=== PATIENT | male | born 1965 | race Caucasian/White ===

== ENCOUNTER 2016-05-09 18:20 | Emergency (ER) | payer OTHER ==
[~2016-05-09] VITALS: Ht 170.2 cm; Wt 171.1 kg
[2016-05-09 18:33] VITALS: TEMP 37.3; Ht 170.2 cm; Wt 171.1 kg
[2016-05-09] MEDS ORDERED: ASCA500 PO (20:13)
[2016-05-09] MEDS ORDERED: DULA0.5I INJ (20:13)
--- NOTE | 2016-05-09 22:07 | DIAGNOSTIC IMAGING REPORT ---
ULTRASOUND LEFT LOWER EXTREMITY VENOUS CLINICAL HISTORY: Left leg pain and swelling. Infection.. COMPARISON STUDY: No priors. TECHNIQUE: Real-time, grayscale, and color Doppler sonography of the deep veins of the left lower extremity was performed from the inguinal crease to the calf. Compression and augmentation were utilized. FINDINGS: There is no sonographic evidence of deep venous thrombosis identified in the left lower extremity. The common femoral, superficial femoral, and popliteal veins are patent and normally compressible. The greater saphenous vein and the profunda femoris vein at the junction with the common femoral vein are clear. The visualized calf veins are patent. There is mild soft tissue edema noted at the site of abnormality in the left anterior olivera. No organized fluid collection is seen. IMPRESSION: There is no sonographic evidence of deep venous thrombosis identified in the left lower extremity. Electronically signed by: Daniele Waller M.D. 05/09/2016 10:05 PM Dictated Date/Time: 05/09/2016 10:05 PM
[2016-05-09] MEDS ORDERED: CEPH500C2 PO (22:12)
[2016-05-09] MEDS ORDERED: CEPHALEXIN MONOHYDRATE 250 MG CAP PO ONE (22:15)
[2016-05-09] MEDS ORDERED: CEPHALEXIN 500MG HOME PACK 1 EA BTL PO ONE ×2 (22:15)
[2016-05-09 22:24] VITALS: BP 156/95; PULSE 93; O2SAT 95
--- NOTE | 2016-05-09 22:46 | EMERGENCY ROOM VISIT NOTE ---
History Report prepared by Maritza: Celestine Woods Under the Supervision of: Dr. Champ Colmenares D.O. First contact with patient: 19:48 Chief Complaint: WOUND INFECTION Stated Complaint: LEFT LEG INECTION Nursing Triage Summary: Pt states redness, itching to LLE that started Sat/Sun. Pt states, "It is sore in the middle of that area, like I would have bumped it on something. I don't remember bumping it, but that doesn't mean I didn't. I got a new pair of jeans and wore them before I washed them. It started with itching. The redness is getting worse and everywhere it's red, it itches." History of Present Illness The patient is a 50 year old male who presents to the Emergency Room with complaints of a worsening wound infection in his left lower leg beginning about 3 days ago. He notes it started as a rash and itchiness, and described it as if he hit his leg, but he denies hitting his leg. The patient denies having any fever, cough, rhinorrhea, chest pain, shortness of breath, nausea, vomiting, diarrhea, or urinary symptoms. He reports having a history of folliculitis on his arms, and a blood clot in his left leg 6 years ago. He notes taking 325 mg Aspirin once per day. He notes that the redness is itchy and warm to touch. He notes that it is also slightly painful. Source of History: patient Onset: about 3 days ago Position: leg (left) Quality: other (wound infection) Timing: worsening Associated Symptoms: + rash, No SOB, No chest pain, No diarrhea, No fevers, No nausea, No urinary symptoms, No vomiting Review of Systems See HPI for pertinent positives & negatives. A total of 10 systems reviewed and were otherwise negative. Past Medical & Surgical Medical Problems: (1) History of blood clots (2) History of folliculitis Family History No pertinent family history stated. Social History Smoking Status: Never Smoker Marital Status: Housing Status: lives with significant other Occupation Status: employed Current/Historical Medications Scheduled Ascorbic Acid (Vitamin C), 1,000 MG PO DAILY Aspirin (Aspirin Ec), 325 MG PO DAILY Cephalexin Monohydrate (Keflex), 500 MG PO QID Cholecalciferol (Vitamin D), 5,000 INTER.UNIT PO DAILY Dulaglutide (Trulicity), 0.5 ML INJ WK Hydrochlorothiazide (Hydrochlorothiazide), 25 MG PO DAILY Metformin HCl (Metformin HCl), 1,000 MG PO QAM Metoprolol Tartrate (Lopressor) (Lopressor), 25 MG PO DAILY Omeprazole (Prilosec), 20 MG PO DAILY Allergies Coded Allergies: No Known Allergies (Unverified , 05/09/16) Physical Exam Vital Signs Date Time Temp Pulse Resp B/P Pulse Ox O2 Delivery O2 Flow Rate FiO2 05/09/16 22:24 93 20 156/95 95 Room Air 05/09/16 20:54 89 20 170/100 95 Room Air 05/09/16 18:33 37.3 91 16 172/85 95 Room Air Physical Exam GENERAL: Sitting up in bed, alert, well appearing, well nourished, no distress, non-toxic EYE EXAM: normal conjunctiva OROPHARYNX: no exudate, no erythema, lips, buccal mucosa, and tongue normal and mucous membranes are moist NECK: supple, no nuchal rigidity, no adenopathy, non-tender LUNGS: Clear to auscultation. Normal chest wall mechanics HEART: no murmurs, S1 normal and S2 normal ABDOMEN: abdomen soft, non-tender, normo-active bowel sounds, no masses, no rebound or guarding. BACK: Back is symmetrical on inspection and there is no deformity, no midline tenderness, no CVA tenderness. SKIN: no rashes and no bruising UPPER EXTREMITIES: upper extremities are grossly normal. LOWER EXTREMITIES: No pitting edema. Calves are equal bilaterally. Left lower extremity: erythema and scratch vazquez on anterior left tibia; skin is warm; no induration; no petechiae. NEURO EXAM: Normal sensorium, cranial nerves II-XII grossly intact, normal speech, no gross weakness of arms, no gross weakness of legs. No drift. Finger to nose intact. Gross sensation intact. Medical Decision & Procedures ER Provider Diagnostic Interpretation: Radiology results have been interpreted by the radiologist and reviewed by me. ULTRASOUND LEFT LOWER EXTREMITY VENOUS FINDINGS: There is no sonographic evidence of deep venous thrombosis identified in the left lower extremity. The common femoral, superficial femoral, and popliteal veins are patent and normally compressible. The greater saphenous vein and the profunda femoris vein at the junction with the common femoral vein are clear. The visualized calf veins are patent. There is mild soft tissue edema noted at the site of abnormality in the left anterior olivera. No organized fluid collection is seen. IMPRESSION: There is no sonographic evidence of deep venous thrombosis identified in the left lower extremity. Electronically signed by: Daniele Waller M.D. 05/09/2016 10:05 PM Dictated Date/Time: 05/09/2016 10:05 PM Medications Administered Medications (Trade) Dose Ordered Sig/Thad Route Start Time Stop Time Status Last Admin Dose Admin Cephalexin Monohydrate (Keflex Cap) 500 mg NOW ONCE PO 05/09/16 22:15 05/09/16 22:16 DC 05/09/16 22:24 500 MG Cephalexin Monohydrate (Keflex 500MG Home Pack) 1 homepack NOW ONCE PO 05/09/16 22:15 05/09/16 22:16 DC 05/09/16 22:24 1 HOMEPACK Cephalexin Monohydrate (Keflex 500MG Home Pack) 1 homepack NOW ONCE PO 05/09/16 22:15 05/09/16 22:16 DC 05/09/16 22:24 1 HOMEPACK ED Course ED COURSE: Vital signs were reviewed and showed hypertensive. The patients medical record was reviewed The above diagnostic studies were performed and reviewed. ED treatments and interventions as stated above. 1950: The patient was evaluated in room C12B. A complete history and physical examination was performed. 2215: Ordered Cephalexin Monohydrate 1 homepack PO, Cephalexin Monohydrate 1 homepack PO, and Cephalexin Monohydrate 500 mg PO. 2220: Upon reevaluation, the patient is doing well.I discussed my findings with the patient and he understands and agrees with the treatment plan. Based on the patients age, coexisting illnesses, exam and lab findings the decision to treat as an outpatient was made. The patient remained stable while under my care. The patient appeared well at the time of discharge. Medical Decision Differential diagnosis includes etiologies such as cellulitis, abscess, MRSA infection, DVT, necrotizing fasciitis, dermatitis, drug eruption, as well as others were entertained. Patient is a 50-year-old male who presents the ER for redness and itching along his left olivera. He notes that it started Sunday night and Sunday. On my exam and slightly warm and erythematous. He does have scratch vazquez. It's unclear whether this is truly a cellulitis versus a topical reaction. As he is a diabetic I recommended Keflex and follow-up in 48 hours. Duplex was negative for any clots. I also recommended topical cortisone cream which she has at home and Zyrtec or Claritin for the itching. He can take Benadryl as needed at night is instructed to follow up with PCP. Discussed with Pt concerning signs and symptoms to watch out for. Pt was instructed to follow up with their PCP and discussed with the patient their option to return to the ED at anytime for persistent or worsening symptoms. The appropriate anticipatory guidance and out- patient management, including indications for return to the emergency department , were explained at length to the patient and understood. Impression Primary Impression: Cellulitis Scribe Attestation The scribe's documentation has been prepared under my direction and personally reviewed by me in its entirety. I confirm that the note above accurately reflects all work, treatment, procedures, and medical decision making performed by me. Departure Information Dispostion Home / Self-Care Prescriptions Cephalexin Monohydrate (KEFLEX) 500 Mg Cap 500 MG PO QID for 8 Days, #32 CAP Prov: Champ Colmenares, DO 05/09/16 Referrals Vandana Lockwood PA-C (PCP) Patient Instructions Cellulitis - [facility], My [facility] Additional Instructions Please follow up with your primary care doctor with in the next 24 hours. Any worsening of your symptoms, please return to the ED immediately. This includes fevers grade and 100.4, worsening of the redness, worsening pain, or any other concerning signs or symptoms from your standpoint. Please take Ceretec or Claritin as needed for the itching. He can take Benadryl prior to going to bed. Please take antibiotic as prescribed. Problem Qualifiers Primary Impression: Cellulitis Site of cellulitis: extremity Site of cellulitis of extremity: lower extremity Laterality: left Qualified Codes: L03.116 - Cellulitis of left lower limb
[2016-10-04] MEDS ORDERED: CHOL100010 PO (20:13)
[2016-10-04] MEDS ORDERED: ASPI325T39 PO (20:13)
[2016-10-04] MEDS ORDERED: HYDR25TA5 PO (20:13)
[2016-10-04] MEDS ORDERED: METO25TA56 PO (20:13)
[2016-10-04] MEDS ORDERED: GLC500 PO (20:13)
[2016-10-04] MEDS ORDERED: PRLSR20 PO (20:13)
== END 2016-05-09 22:39 | disposition home or self-care (01) ==
LOC: C.EDB 18:22 → C.EDC 22:39
DX: L03.116 Cellulitis of left lower limb (principal); Z79.82 Long term (current) use of aspirin

== ENCOUNTER 2016-10-04 20:59 | Emergency (ER) | payer OTHER ==
[~2016-10-04] VITALS: Ht 170.2 cm; Wt 171.4 kg
[~2016-10-04 20:59] MED LIST: ASCA500 PO; ASPI325T39 PO; CHOL100010 PO; DULA0.5I INJ; GLC500 PO; HYDR25TA5 PO; METO25TA56 PO; PRLSR20 PO
[2016-10-04 21:04] VITALS: TEMP 36.6; Ht 170.2 cm; Wt 171.4 kg
[2016-10-04] MEDS ORDERED: DiphenhydrAMINE HCL 50 MG/ML VIAL IV STA (21:38)
[2016-10-04] MEDS ORDERED: RANITIDINE HCL 50 MG/100 ML D5W IV STA (21:38)
[2016-10-04] MEDS ORDERED: TURM1CAP4 PO (21:44)
[2016-10-04] MEDS ORDERED: PRED10TA PO (21:44)
[2016-10-04] MEDS ORDERED: DEXAMETHASONE SOD INJ 10 MG/ML VIAL IV ONE (21:45)
[2016-10-04 22:21] LABS: BASO % 0.3 %; BASO ABS # 0.03 K/uL (0-0.2); COMPLETE YES; EOS % 2.1 %; HEMATOCRIT 40.3 % (42-52); IG% 0.4 %; LYMPH % 31.8 %; LYMPH ABS # 3.22 K/uL (1.2-3.4); MEAN CELL VOLUME 89.8 fL (80-100); MEAN CORPUSCULAR HEMOGLOBIN 31.4 pg (25-34); MEAN PLATELET VOLUME 11.4 fL (7.4-10.4); NEUT % 58.4 %; PLATELET COUNT 229 K/uL (130-400); RED BLOOD COUNT 4.49 M/uL (4.7-6.1); WHITE BLOOD COUNT 10.14 K/uL (4.8-10.8)
[2016-10-04 22:47] LABS: ALKALINE PHOSPHATASE 135 U/L (45-117); ALT/SGPT 49 U/L (12-78); AST/SGOT 46 U/L (15-37); BLOOD UREA NITROGEN 15 mg/dl (7-18); BUN/CREATININE RATIO 13.6 (10-20); CALCIUM 8.3 mg/dl (8.5-10.1); CARBON DIOXIDE 28 mmol/L (21-32); CHLORIDE 101 mmol/L (98-107); GLUCOSE 272 mg/dl (70-99); POTASSIUM 3.2 mmol/L (3.5-5.1); SODIUM 138 mmol/L (136-145)
[2016-10-04] MEDS ORDERED: POTASSIUM CHLORIDE 10 MEQ TABCR PO STA (23:04)
[2016-10-04] MEDS ORDERED: EPINEPHRINE ADULT AUTO-INJECT 0.3 MG SYR IM ONE (23:45)
[2016-10-05 00:05] VITALS: BP 131/74; PULSE 98; O2SAT 95
--- NOTE | 2016-10-05 04:53 | EMERGENCY ROOM VISIT NOTE ---
History First contact with patient: 21:21 Chief Complaint: ALLERGIC REACTION Stated Complaint: ALLERGIC REACTION TO SOMETHING Nursing Triage Summary: Started Turmeric a month ago, changed fabric softener last week. Yesterday had hives and itching. Took Claritin which helped somewhat. Took the Tumeric this morning, lips swelled and hives came back, took Claritin again. PCP advised to go to ED. History of Present Illness The patient is a 50 year old male who presents to the Emergency Room with complaints of hives and allergic reaction for the past day after the used a new detergent. Patient states though for the past month has been taken tumeric for health wellness and has noticed that he's been sweating more and has had yellow color to his stool. Patient states he cannot afford his diabetes medicine injections and is only using his metformin. He does not monitor his blood sugars. Patient denies chest pain, dyspnea, abdominal pain, vomiting, throat tightness, feeling of impending doom, airway compromise. He is tolerate by mouth fluids and food. He called the family care doctor and was called in prednisone. Patient took a Claritin with some relief of symptoms. Review of Systems See HPI for pertinent positives & negatives. A total of 10 systems reviewed and were otherwise negative. Past Medical/Surgical History Medical Problems: (1) History of blood clots (2) History of folliculitis Diabetes, hypertension, vitamin D deficiency Social History Smoking Status: Never Smoker Drug Use: none Marital Status: Housing Status: lives with significant other Occupation Status: employed Current/Historical Medications Scheduled Aspirin (Aspirin Ec), 325 MG PO DAILY Cholecalciferol (Vitamin D), 5,000 INTER.UNIT PO DAILY Hydrochlorothiazide (Hydrochlorothiazide), 25 MG PO DAILY Metformin HCl (Metformin HCl), 1,000 MG PO QAM Metoprolol Tartrate (Lopressor) (Lopressor), 25 MG PO DAILY Omeprazole (Prilosec), 20 MG PO DAILY Prednisone (Prednisone), 40 MG PO DAILY Turmeric (Curcuma Longa) (Turmeric), 1 TAB PO DAILY Physical Exam Vital Signs Date Time Temp Pulse Resp B/P (MAP) Pulse Ox O2 Delivery O2 Flow Rate FiO2 10/05/16 00:05 98 20 131/74 95 10/04/16 23:09 88 18 132/83 95 Room Air 10/04/16 21:04 36.6 105 18 183/94 95 Room Air Pain Rating (0-10): 0 Physical Exam VITALS: Vitals are noted on the nurse's note and reviewed by myself. Vital signs hypertensive GENERAL: Pleasant male, in no acute distress, nondiaphoretic, well-developed well-nourished. SKIN: Diffuse erythematous blanchable dermatitis most consistent with hives The rest of the skin was without rashes, erythema, edema, or bruising. There is no tenting of the skin. Capillary reflex less than 2 seconds. HEAD: Normocephalic atraumatic. No facial swelling EARS: External auditory canals clear, tympanic membranes pearly tafoya without erythema or effusion bilaterally. EYES: Pupils equal round and reactive to light and accommodation. Conjunctivae without injection, sclerae without icterus. Extraocular movements intact. NOSE: Patent, turbinates without inflammation or discharge. MOUTH: Mucous membranes moist. Pharynx without erythema or exudate. Uvula midline. Airway patent. Tongue does not deviate. No airway compromise NECK: Supple without nuchal rigidity. No lymphadenopathy. No thyromegaly. Cervical spine is nontender. No JVD. HEART: Regular rate and rhythm LUNGS: Clear to auscultation bilaterally without wheezes, rales or rhonchi. No dullness to percussion. No retractions or accessory muscle use. ABDOMEN: Positive bowel sounds x 4. Normal tympanic percussion. Soft, nontender, without masses or organomegaly. Kelsey sign negative. No guarding or rebound tenderness. MUSCULOSKELETAL: No muscle atrophy, erythema, or edema noted. NEURO: Patient was alert and oriented to person place and time. Normal sensation to light and sharp touch. No focal neurological deficits. Medical Decision & Procedures Laboratory Results 10/04/16 22:05 Red Blood Count 4.49, Mean Corpuscular Volume 89.8, Mean Corpuscular Hemoglobin 31.4, Mean Corpuscular Hemoglobin Concent 35.0, Mean Platelet Volume 11.4, Neutrophils (%) (Auto) 58.4, Lymphocytes (%) (Auto) 31.8, Monocytes (%) (Auto) 7.0, Eosinophils (%) (Auto) 2.1, Basophils (%) (Auto) 0.3, Neutrophils # (Auto) 5.93, Lymphocytes # (Auto) 3.22, Monocytes # (Auto) 0.71, Eosinophils # (Auto) 0.21, Basophils # (Auto) 0.03 10/04/16 22:05 Test 10/04/16 22:05 White Blood Count 10.14 K/uL (4.8-10.8) Red Blood Count 4.49 M/uL (4.7-6.1) Hemoglobin 14.1 g/dL (14.0-18.0) Hematocrit 40.3 % (42-52) Mean Corpuscular Volume 89.8 fL (80-100) Mean Corpuscular Hemoglobin 31.4 pg (25-34) Mean Corpuscular Hemoglobin Concent 35.0 g/dl (32-36) Platelet Count 229 K/uL (130-400) Mean Platelet Volume 11.4 fL (7.4-10.4) Neutrophils (%) (Auto) 58.4 % Lymphocytes (%) (Auto) 31.8 % Monocytes (%) (Auto) 7.0 % Eosinophils (%) (Auto) 2.1 % Basophils (%) (Auto) 0.3 % Neutrophils # (Auto) 5.93 K/uL (1.4-6.5) Lymphocytes # (Auto) 3.22 K/uL (1.2-3.4) Monocytes # (Auto) 0.71 K/uL (0.11-0.59) Eosinophils # (Auto) 0.21 K/uL (0-0.5) Basophils # (Auto) 0.03 K/uL (0-0.2) RDW Standard Deviation 42.4 fL (36.4-46.3) RDW Coefficient of Variation 13.0 % (11.5-14.5) Immature Granulocyte % (Auto) 0.4 % Immature Granulocyte # (Auto) 0.04 K/uL (0.00-0.02) Anion Gap 9.0 mmol/L (3-11) Est Creatinine Clear Calc Drug Dose 121.6 ml/min Estimated GFR () 89.6 Estimated GFR (Non- 77.3 BUN/Creatinine Ratio 13.6 (10-20) Calcium Level 8.3 mg/dl (8.5-10.1) Total Bilirubin 0.1 mg/dl (0.2-1) Direct Bilirubin < 0.1 mg/dl (0-0.2) Aspartate Amino Transf (AST/SGOT) 46 U/L (15-37) Alanine Aminotransferase (ALT/SGPT) 49 U/L (12-78) Alkaline Phosphatase 135 U/L (45-117) Total Protein 6.7 gm/dl (6.4-8.2) Albumin 3.1 gm/dl (3.4-5.0) Chemistry Specimen Hemolysis Medications Administered Medications (Trade) Dose Ordered Sig/Thad Route Start Time Stop Time Status Last Admin Dose Admin Diphenhydramine HCl (Benadryl Inj) 50 mg NOW STAT IV 10/04/16 21:38 10/04/16 21:45 DC 10/04/16 22:11 50 MG Ranitidine HCl (zANTac IV) 50 mg NOW STAT IV 10/04/16 21:38 10/04/16 21:45 DC 10/04/16 22:14 50 MG Dexamethasone Sodium Phosphate (Decadron Inj) 10 mg NOW ONCE IV 10/04/16 21:45 10/04/16 21:46 DC 10/04/16 22:09 10 MG Potassium Chloride (Klor-Con M10) 30 meq NOW STAT PO 10/04/16 23:04 10/04/16 23:05 DC 10/04/16 23:12 30 MEQ Epinephrine (Epipen) 0.3 mg NOW ONCE IM 10/04/16 23:45 10/04/16 23:46 DC 10/05/16 00:04 0.3 MG ED Course Prior records/ancillary studies reviewed. Triage Nursing notes reviewed. The patient's history was concerning for possible allergic reaction. Differential diagnosis: Etiologies such as allergic reaction, anaphylaxis, urticaria, Spears-Pranav syndrome, toxic epidermal necrolysis, erythema multiforme, cellulitis, as well as others were entertained. Physical examination: As above. ER treatment provided: Continuous cardiac monitoring Benadryl 50 mg IV Zantac 50 mg IV Decadron 10 mg IV On reassessment the patient felt better. Diagnostic interpretation by me: Mild hyperglycemia without DKA. Low potassium this is replaced orally It appears the patient had an allergic reaction and side effect to the supplement. The above treatment did well to reverse the symptoms. After prolonged monitoring and frequent reassessments the patient did very well and symptoms resolved. The patient was counseled on the spectrum of this disease process and told to avoid potential triggers. I gave my usual and customary discussion regarding this issue. He was advised not to take the supplement anymore and not to use laundry detergent anymore. He was advised to see his family care DrKhurram for his blood pressure and hyperglycemia. He was advised to return to the ER immediately for chest pain, difficulty breathing, worsening signs or symptoms or as needed. Patient did not have acute abdomen on exam. He is well-appearing. By the evaluation outlined above emergent etiologies such as recurring anaphylaxis, anaphylatic shock, airway compromise, Spears-Pranav syndrome, toxic epidermal necrolysis, erythema multiforme, infectious etiologies, as well as others were deemed relatively unlikely. The pt informed about the findings as listed above. All questions were answered and pleased with the treatment. Return instructions were outlined and the patient was discharged in stable condition. Outpatient prescription management: EpiPen prednisone Referral: The patient was referred back to primary care physician for follow-up in 2-3 days for a recheck of the current condition. Medical Decision As above Medication Reconcilliation Current Medication List: was personally reviewed by me Blood Pressure Screening Patient's blood pressure: Elevated blood pressure Blood pressure disposition: Elevated BP felt to be situational Impression Primary Impression: Allergic reaction Departure Information Dispostion Home / Self-Care Condition GOOD Referrals Vandana Lockwood PA-C (PCP) Forms HOME CARE DOCUMENTATION FORM, IMPORTANT VISIT INFORMATION Patient Instructions My [facility], ED Allergic Reaction General Other Additional Instructions DO NOT drive, drink alcohol, operate machinery, or perform dangerous activities today. You were given medications in the ER that can affect your ability to safely function or operate a vehicle. Monitor your blood sugar. It was high today. Do not take Tumeric in the future. Do not use the same fabric softener in the future. Epi-Pen: Use one injection as instructed for severe allergic reactions associated with shortness of breath, difficulty breathing, or throat or tongue swelling. If you use this injection call 911 or proceed immediately to the nearest Emergency Room. Take your prednisone as directed from the family care doctor today. Diphenhydramine(Benadryl) 25mg: use 25 to 50 mg every six hours for swelling, itching, or hives. This medication is sedating and will cause drowsiness. Avoid alcohol, operating machinery or dangerous equipment, working on ladders or roofs, DRIVING, or situations where being under the influence may be dangerous. Zantac 75: Take two pills twice a day along with Benadryl as needed for swelling , itching, or hives. Most people know this for its affect on the stomach, but it also acts similar to, but less potent than Benadryl for allergic reactions. Both the Benadryl and the Zantac are available [id number]. Continue current medications. Return to the emergency department for worsening of your rash, swelling of your face, lips, tongue, or throat, difficulty breathing, vomiting, or as needed. Follow-up with your primary care physician in 2 to 3 days for a recheck of your current condition. Problem Qualifiers Primary Impression: Allergic reaction Encounter type: initial encounter Qualified Codes: T78.40XA - Allergy, unspecified, initial encounter
== END 2016-10-05 00:07 | disposition home or self-care (01) ==
LOC: C.EDB 21:01 → C.EDC 10-05 00:07
DX: T78.40XA Allergy, unspecified, initial encounter (principal); X58.XXXA Exposure to other specified factors, initial encounter; E11.9 Type 2 diabetes mellitus without complications; I10 Essential (primary) hypertension; E55.9 Vitamin D deficiency, unspecified; Z86.2 Personal history of diseases of the blood and blood-forming organs and certain disorders involving the immune mechanism; Z79.82 Long term (current) use of aspirin; Z79.84 Long term (current) use of oral hypoglycemic drugs; Z79.899 Other long term (current) drug therapy

== ENCOUNTER 2020-01-17 16:04 | Inpatient (IN) ==
[2020-01-17 18:12] LABS: Hematocrit (blood only) 44.5 % (42-52); Hemoglobin 15.1 g/dL (14.0-18.0); Mean Corpuscular Hemoglobin 29.9 pg (25-34); Mean Corpuscular Hgb Conc 33.9 g/dL (32-36); Mean Corpuscular Volume 88.1 fL (80-100); Mean Platelet Volume 10.8 fL (7.4-10.4); Platelet Count 228 K/uL (130-400); RDW Standard Deviation 45.1 fL (36.4-46.3); Red Blood Count 5.05 M/uL (4.7-6.1); White Blood Count 11.45 K/uL (4.8-10.8)
--- NOTE | 2020-01-17 18:21 | Emergency Department Note ---
History of Present Illness General Chief complaint: Shortness of Breath/Dyspnea Source: patient and RN notes reviewed Mode of arrival: ambulatory Limitations: no limitations History of Present Illness Provider complaint: SOB This patient is a 54-year-old male who presents to the emergency department with complaints of 9 days of shortness of breath, cough chills/sweats. Patient states he has been nauseated and did vomit x1 just a clear frothy emesis at the beginning of the illness. Currently the patient has been having a "gurgling and upset stomach" anytime he drinks fluids. He states he cannot drink enough water and has a [place]. He is diabetic but has not been checking his blood sugars. 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 He was using his CPAP during the day to help with the shortness of breath however over the last 24 to 36 hours this has not been beneficial. Patient's 20-year-old daughter was tested for Covid several days ago due to sinus issues. He states his does not work but his daughter does go to school. He was placed on antibiotics over telehealth by his primary care provider yesterday by his insistence. He states his PCP wanted him to obtain a Covid test but he declined. Home Medications Medication Instructions Recorded Confirmed Type aspirin 325 mg PO PM 02/07/18 01/17/20 History hydrochlorothiazide 25 mg PO QAM 02/07/18 01/17/20 History metformin 1,000 mg PO BID 02/07/18 01/17/20 History metoprolol tartrate 25 mg PO BID 02/07/18 01/17/20 History albuterol sulfate 2 inh INHALATION QID PRN 05/12/19 01/17/20 History ascorbic acid (vitamin C) 1 g PO BID 05/12/19 01/17/20 History glimepiride 4 mg PO BID 05/12/19 01/17/20 History losartan 100 mg PO QAM 05/12/19 01/17/20 History omeprazole 20 mg PO QAM 05/12/19 01/17/20 History acetaminophen [Tylenol Extra 1,000 mg PO Q6H PRN 01/17/20 01/17/20 History Strength] dulaglutide [Trulicity] 0.5 mg SUBCUT WK 01/17/20 01/17/20 History empagliflozin [Jardiance] 10 mg PO QAM 01/17/20 01/17/20 History zinc 50 mg PO QAM 01/17/20 01/17/20 History Allergies Allergy/AdvReac Type Severity Reaction Status Date / Time No Known Allergies Allergy Unverified 01/17/20 19:26 Past Med/Surg History Medical History (Updated 01/17/20 @ 22:26 by Annabella Garcia MD) Diabetes DVT (deep venous thrombosis) Dyslipidemia Hypertension Morbid obesity Social History Smoking Status: Never smoker Preferred Language: Niuean marital status: current occupational status: employed Feels Safe at Home: Yes Review of Systems See HPI for pertinent positives & negatives. and A total of 10 systems reviewed and were otherwise negative Physical Exam Vital Signs Vital Signs - 24 hr 01/17/20 19:30 01/17/20 20:00 01/17/20 20:30 Pulse Rate 96 H 98 H 99 H Pulse Rate from SpO2 Sensor 95 H 98 H 115 H Respiratory Rate 20 19 24 Blood Pressure 135/87 152/75 H 165/85 H Blood Pressure Mean 100 106 111 Pulse Oximetry 96 98 90 Oxygen Delivery Method Nasal Cannula Nasal Cannula Nasal Cannula Oxygen Flow Rate 2 2 2 Pulse Oximetry Post Tiitration 01/17/20 20:47 01/17/20 21:00 01/17/20 21:30 Pulse Rate 98 H 101 H Pulse Rate from SpO2 Sensor 96 H 101 H Respiratory Rate 21 21 Blood Pressure 175/81 H 160/87 H Blood Pressure Mean 96 105 Pulse Oximetry 95 94 Oxygen Delivery Method Nasal Cannula Nasal Cannula Nasal Cannula Oxygen Flow Rate 4 4 4 Pulse Oximetry Post Tiitration 95 01/17/20 22:00 Pulse Rate 98 H Pulse Rate from SpO2 Sensor 98 H Respiratory Rate 22 Blood Pressure 173/85 H Blood Pressure Mean 108 Pulse Oximetry 93 Oxygen Delivery Method Nasal Cannula Oxygen Flow Rate 4 Pulse Oximetry Post Tiitration Vital signs reviewed. Noted to be hypoxic on room air at triage General: Morbidly obese, somewhat ill-appearing 54-year-old male, in no significant distress. HEENT: No scleral icterus, PERRLA, neck supple. Atraumatic. Cardiovascular: Slightly tachycardic, no extra sounds. Pulmonary: Somewhat distant lung sounds but otherwise clear to auscultation bilaterally, normal work of breathing on nasal cannula oxygen. Abdomen: Soft, obese, nontender, nondistended, positive bowel sounds. Musculoskeletal: Atraumatic, minimal peripheral edema bilaterally. Neurologic: Patient awake alert and oriented x 3 Skin: Warm, dry, no rash Course Administered Medications Discontinued Medications Dexamethasone (Dexamethasone Sod Inj 10 Mg/Ml Vial) 6 mg IV NOW ONE Stop: 01/17/20 19:55 Last Admin: 01/17/20 20:15 Dose: 6 mg Documented by: [id number] Potassium Chloride (K Patrice / Wtr) 10 meq in 100 mls @ 100 mls/hr IV Q1H LIBAN Stop: 01/17/20 21:59 Last Admin: 01/17/20 21:45 Dose: 100 mls/hr Documented by: [id number] Infusion: 01/17/20 21:08 Dose: 0 mls/hr Documented by: [id number] Admin: 01/17/20 20:16 Dose: 100 mls/hr Documented by: [id number] Ioversol (Optiray 320 125ml) 120 ml IV ONCE ONE Stop: 01/17/20 19:13 Last Admin: 01/17/20 19:12 Dose: 120 ml Documented by: [id number] Critical Care Time Critical Care Time: Yes I have personally spent greater than 32 minutes of critical care time in the direct management of this patient. This includes bedside care, interpretation of diagnostic studies, and testing, discussion with consultants, patient, and family members, and other required patient management activities. This 32 minutes is in excess of all separately billable procedures. Medical Decision Making Differential Diagnosis COVID, reactive airway disease, pneumonia, pneumothorax, COPD, CHF, infections, cardiac ischemia, pulmonary embolism, musculoskeletal, gastrointestinal, as well as other pathologies. Medical Records Attestation: I reviewed the patient's medical records. Home Medications Current Medication List: was personally reviewed by me Laboratory Data Attestation: I reviewed the patient's lab results. Result diagrams: 01/17/20 17:47 01/17/20 17:47 Lab Results 01/17/20 01/17/20 01/17/20 Range/Units 17:47 17:47 17:47 WBC 11.45 H (4.8-10.8) K/uL RBC 5.05 (4.7-6.1) M/uL Hgb 15.1 (14.0-18.0) g/dL Hct 44.5 (42-52) % MCV 88.1 (80-100) fL MCH 29.9 (25-34) pg MCHC 33.9 (32-36) g/dL RDW Std Deviation 45.1 (36.4-46.3) fL RDW Coeff of Real 14.0 (11.5-14.5) % Plt Count 228 (130-400) K/uL MPV 10.8 H (7.4-10.4) fL Sodium 138 (136-145) mmol/L Potassium 2.9 L (3.5-5.1) mmol/L Chloride 100 (98-107) mmol/L Carbon Dioxide 26 (21-32) mmol/L Anion Gap 12.0 H (3-11) BUN 16 (7-18) mg/dl Creatinine 0.98 (0.6-1.4) mg/dl Est Cr Clr Drug Dosing Not Reportable Est GFR ( Amer) 100.2 Est GFR (Non-Af Amer) 86.4 BUN/Creatinine Ratio 16.4 (10-20) Glucose 156 H (70-99) mg/dl Lactate (0.4-2.0) mmol/L Calcium 8.2 L (8.5-10.1) mg/dl Total Bilirubin 0.6 (0.2-1) mg/dl Direct Bilirubin 0.2 (0-0.2) mg/dl AST 54 H (15-37) U/L ALT 45 (12-78) U/L Alkaline Phosphatase 71 (45-117) U/L Troponin I 0.039 (0-0.045) ng/ml NT-Pro-B Natriuret Pep 76 (0-900) pg/ml Total Protein 7.5 (6.4-8.2) gm/dl Albumin 2.6 L (3.4-5.0) gm/dl COVID-19 Eval Order COVID-19 PCR (Negative) Influenza Type A (PCR) (Neg) Influenza Type B (PCR) (Neg) RSV (RT-PCR) (Neg) SARS-CoV-2, RNA, NAAT NEGATIVE (NEGATIVE) 01/17/20 01/17/20 01/17/20 Range/Units 17:47 20:20 20:20 WBC (4.8-10.8) K/uL RBC (4.7-6.1) M/uL Hgb (14.0-18.0) g/dL Hct (42-52) % MCV (80-100) fL MCH (25-34) pg MCHC (32-36) g/dL RDW Std Deviation (36.4-46.3) fL RDW Coeff of Real (11.5-14.5) % Plt Count (130-400) K/uL MPV (7.4-10.4) fL Sodium (136-145) mmol/L Potassium (3.5-5.1) mmol/L Chloride (98-107) mmol/L Carbon Dioxide (21-32) mmol/L Anion Gap (3-11) BUN (7-18) mg/dl Creatinine (0.6-1.4) mg/dl Est Cr Clr Drug Dosing Est GFR ( Amer) Est GFR (Non-Af Amer) BUN/Creatinine Ratio (10-20) Glucose (70-99) mg/dl Lactate 1.7 (0.4-2.0) mmol/L Calcium (8.5-10.1) mg/dl Total Bilirubin (0.2-1) mg/dl Direct Bilirubin (0-0.2) mg/dl AST (15-37) U/L ALT (12-78) U/L Alkaline Phosphatase (45-117) U/L Troponin I (0-0.045) ng/ml NT-Pro-B Natriuret Pep (0-900) pg/ml Total Protein (6.4-8.2) gm/dl Albumin (3.4-5.0) gm/dl COVID-19 Eval Order CovFluRsv at [facility] COVID-19 PCR POSITIVE A* (Negative) Influenza Type A (PCR) Negative (Neg) Influenza Type B (PCR) Negative (Neg) RSV (RT-PCR) Negative (Neg) SARS-CoV-2, RNA, NAAT (NEGATIVE) Imaging Data Radiologist's Impression: XR chest 1V portable CLINICAL HISTORY: SOB COMPARISON STUDY: 05/12/2019 FINDINGS: The heart is enlarged. There is superior mediastinal widening, nonspecific finding which could be secondary to fat deposition given the patient's body habitus. There are bilateral airspace opacities left greater than right. Diagnostic considerations include asymmetric pulmonary edema versus a multifocal pneumonia. Correlation with Covid 19 testing is recommended.[ IMPRESSION: 1. Bilateral pulmonary airspace opacities left greater than right. Diagnostic considerations include multifocal pneumonia versus asymmetric pulmonary edema. Correlation with Covid 19 testing is recommended. ACT 112: Negative or not required by law. Electronically signed by: Benjamín Terrell M.D. 01/17/2020 6:21 PM Dictated: 01/17/201818Transcribed: 01/17/201818 CT ANGIOGRAM OF THE CHEST CLINICAL HISTORY: Chest pain and shortness of breath NEGATIVE COVID 19 TEST. COMPARISON STUDY: February 07, 2018 TECHNIQUE: Following the IV administration of 120 mL of Optiray-320, CT angiogram of the thorax was performed from the thoracic inlet to the lung bases utilizing the pulmonary embolus protocol. Images are reviewed in the axial, sagittal, and coronal planes. IV contrast was administered without complication. MIP imaging was performed. A dose lowering technique was utilized adhering to the principles of ALARA. CT DOSE: 919.66 mGy.cm FINDINGS: There is hepatic steatosis Borderline enlarged paratracheal lymph nodes, are likely reactive. There was no evidence of thoracic aortic dilatation. No pulmonary artery filling defects are visualized. Evaluation of lower lobe pulmonary artery branches is limited due to respiratory motion artifact. No pleural effusions are visualized. There are multifocal groundglass pulmonary opacities. Despite the reported negative Covid 19 test, the findings are viewed as suspicious for Covid 19 pneumonia. Retesting is recommended IMPRESSION: 1. Motion degraded study 2. Multifocal groundglass pulmonary opacities with a somewhat peripheral distribution. Although nonspecific, the findings are viewed as suspicious for Covid 19 pneumonia. Repeat Covid 19 testing is recommended. 3. No evidence of acute pulmonary embolism although evaluation of lower lobe pu lmonary artery branches is limited due to respiratory motion artifact. 4. Hepatic steatosis ACT 112: Negative or not required by law. Electronically signed by: Benjamín Terrell M.D. 01/17/2020 7:27 PM Dictated: 01/17/201921Transcribed: 01/17/201921 ECG Data Attestation: I personally reviewed and interpreted this ECG as follows: Blood Pressure Blood Pressure Findings: Elevated blood pressure Blood Pressure Disposition: further management by hospitalist KAELA Narrative This patient was evaluated and appeared to be in no significant distress. Triage vital signs reveal a hypoxia however patient responded well to nasal cannula supplementation at 4 L. Patient was placed in isolation. Patient's body habitus may be causing some restrictive hypoxia as well. Chest x-ray reveals patchy bilateral pulmonary infiltrates. IV access was obtained and laboratory work was drawn. An order for cardiac monitoring was placed and the patient was noted to be in a sinus rhythm at 96 bpm. Patient's initial Covid swab was negative. Chest CT was performed given the patient's history of DVT and now hypoxia with patchy bilateral infiltrates. The study is negative for PE however is concerning for Covid pneumonitis. A cephiad COVID was performed and is positive. Patient did receive K rider 10 M EQ x2 IV for potassium of 2.9. Pt was given IV Decadron 6 mg. Blood cultures and lactate are pending. Patient's case was discussed with Dr. Kim who will evaluate the patient for admission and further management. Impression & Plan Pneumonia due to 2019 novel coronavirus, Diabetes, Morbid obesity, Hypoxia, Acute hypokalemia Discharge Plan Visit Data Chief Complaint: Shortness of Breath/Dyspnea ED Provider: Annabella Garcia Discharge Problem: Pneumonia due to 2019 novel coronavirus, Diabetes, Morbid obesity, Hypoxia, Acute hypokalemia Forms Stand Alone Forms: [facility] Prescriptions Prescriptions: No Action ascorbic acid (vitamin C) 1,000 mg Tablet 1 g PO BID RF: 0 omeprazole 20 mg Capsule,Delayed Release(Dr/Ec) 20 mg PO QAM RF: 0 albuterol sulfate 90 mcg/actuation Hfa Aerosol Inhaler 2 inh INHALATION QID PRN (Reason: Shortness Of Breath Or Wheezing) RF: 0 losartan 100 mg tablet 100 mg PO QAM RF: 0 glimepiride 4 mg tablet 4 mg PO BID RF: 0 aspirin 325 mg Tablet,Delayed Release (Dr/Ec) 325 mg PO PM RF: 0 metformin 1,000 mg Tablet 1,000 mg PO BID RF: 0 hydrochlorothiazide 25 mg Tablet 25 mg PO QAM RF: 0 metoprolol tartrate 25 mg Tablet 25 mg PO BID RF: 0 acetaminophen [Tylenol Extra Strength] 500 mg Tablet 1,000 mg PO Q6H PRN (Reason: Pain) RF: 0 zinc 50 mg Tablet 50 mg PO QAM RF: 0 Jardiance 10 mg tablet 10 mg PO QAM RF: 0 Trulicity 1.5 mg/0.5 mL pen injector 0.5 mg SUBCUT WK RF: 0 Discharge Problem: Diabetes Qualifiers: Diabetes mellitus type: type 2 Diabetes mellitus manager intermediate insulin use: without manager intermediate use Diabetes mellitus complication status: without complication Qualified Code(s): E11.9 - Type 2 diabetes mellitus without complications
[2020-01-17 18:29] LABS: Alanine Aminotransferase 45 U/L (12-78); Albumin Level 2.6 gm/dl (3.4-5.0); Aspartate Aminotransferase 54 U/L (15-37); BUN Creatinine Ratio 16.4 (10-20); Bilirubin Direct 0.2 mg/dl (0-0.2); Blood Urea Nitrogen 16 mg/dl (7-18); Calcium 8.2 mg/dl (8.5-10.1); Carbon Dioxide 26 mmol/L (21-32); Chloride 100 mmol/L (98-107); Est GFR (African American) 100.2; Est GFR (Non-African American) 86.4; Glucose 156 mg/dl (70-99); Potassium 2.9 mmol/L (3.5-5.1); Sodium 138 mmol/L (136-145)
--- NOTE | 2020-01-17 18:32 | XRay Report ---
XR chest 1V portable CLINICAL HISTORY: SOB COMPARISON STUDY: 05/12/2019 FINDINGS: The heart is enlarged. There is superior mediastinal widening, nonspecific finding which co uld be secondary to fat deposition given the patient's body habitus. There are bilateral airspace opa cities left greater than right. Diagnostic considerations include asymmetric pulmonary edema versus a multifocal pneumonia. Correlation with Covid 19 testing is recommended.[ IMPRESSION: 1. Bilateral pulmonary airspace opacities left greater than right. Diagnostic considerations include multifocal pneumonia versus asymmetric pulmonary edema. Correlation with Covid 19 testing is recommen ded. ACT 112: Negative or not required by law. Electronically signed by: Benjamín Terrell M.D. 01/17/2020 6:21 PM
[2020-01-17 18:33] LABS: Alkaline Phosphatase 71 U/L (45-117); Bilirubin,Total 0.6 mg/dl (0.2-1); NT Pro B Type Natriuretic Pept 76 pg/ml (0-900); Total Protein 7.5 gm/dl (6.4-8.2); Troponin I 0.039 ng/ml (0-0.045)
[2020-01-17] MEDS ORDERED: OPTIRAY 320 125ml IV ONE (19:12)
--- NOTE | 2020-01-17 19:28 | CT Scan Report ---
CT ANGIOGRAM OF THE CHEST CLINICAL HISTORY: Chest pain and shortness of breath NEGATIVE COVID 19 TEST. COMPARISON STUDY: February 07, 2018 TECHNIQUE: Following the IV administration of 120 mL of Optiray-320, CT angiogram of the thorax was p erformed from the thoracic inlet to the lung bases utilizing the pulmonary embolus protocol. Images a re reviewed in the axial, sagittal, and coronal planes. IV contrast was administered without complica tion. MIP imaging was performed. A dose lowering technique was utilized adhering to the principles o f ALARA. CT DOSE: 919.66 mGy.cm FINDINGS: There is hepatic steatosis Borderline enlarged paratracheal lymph nodes, are likely reactive. There was no evidence of thoracic aortic dilatation. No pulmonary artery filling defects are visualized. Evaluation of lower lobe pulmonary artery branche s is limited due to respiratory motion artifact. No pleural effusions are visualized. There are multifocal groundglass pulmonary opacities. Despite the reported negative Covid 19 test, th e findings are viewed as suspicious for Covid 19 pneumonia. Retesting is recommended IMPRESSION: 1. Motion degraded study 2. Multifocal groundglass pulmonary opacities with a somewhat peripheral distribution. Although nonsp ecific, the findings are viewed as suspicious for Covid 19 pneumonia. Repeat Covid 19 testing is [place] mmended. 3. No evidence of acute pulmonary embolism although evaluation of lower lobe pulmonary artery branche s is limited due to respiratory motion artifact. 4. Hepatic steatosis ACT 112: Negative or not required by law. Electronically signed by: Benjamín Terrell M.D. 01/17/2020 7:27 PM
[2020-01-17] MEDS ORDERED: DEXAMETHASONE SOD INJ 10 MG/ML VIAL IV ONE (19:54)
[2020-01-17] MEDS: POTASSIUM CHLORIDE / WTR 10 MEQ/100 ML PLCT IV SCH ×2 (20:16→21:45)
[2020-01-17 21:38] LABS: Influenza A virus by PCR Negative (Neg); Influenza B virus by PCR Negative (Neg); RSV by PCR Negative (Neg)
[2020-01-17 22:00] LABS: SARS CoV2 RNA(COVID-19) InHosp POSITIVE (Negative)
--- NOTE | 2020-01-17 22:38 | History & Physical Report ---
Date of Service January 17, 2020 Assessment & Plan (1) Pneumonia due to 2019 novel coronavirus: Pneumonia due to COVID-19 virus with hypoxia- Admit to monitored bed Decadron 6 mg IV daily Convalescent plasma, consent obtained Remdesivir IV per protocol Azithromycin 500 mg IV daily Ventolin HFA 2 puffs 4 times daily, and every 2 hours as needed Nasal cannula titration to keep pulse ox around 93-94% Present on Admission?: Yes (2) Hypoxia: See above Present on Admission?: Yes (3) Diabetes: Glucose 156 upon admission, with decreased oral intake during illness. Hold Trulicity, Jardiance, glimepiride and metformin. Placed on Accu-Cheks before meals and at bedtime with NovoLog coverage per scale Check hemoglobin A1c Present on Admission?: Yes (4) Morbid obesity: Noted as risk factor Present on Admission?: Yes (5) Hypertension: Continue metoprolol tartrate 25 mg p.o. twice daily, losartan 100 mg p.o. every morning and aspirin 325 mg daily. Hold HCTZ due to hypokalemia. Given K riders in the ED. We will repeat laboratories in a.m. Present on Admission?: Yes (6) DVT (deep venous thrombosis): Place on Lovenox prophylaxis for COVID-19 Present on Admission?: Yes (7) GERD (gastroesophageal reflux disease): Omeprazole 20 mg daily to be changed to pantoprazole 40 mg daily Present on Admission?: Yes (8) Acute hypokalemia: Replace as noted and repeat levels Present on Admission?: Yes (9) Obstructive sleep apnea on CPAP: CPAP at bedtime as needed Present on Admission?: Yes (10) Dyslipidemia: Not on treatment at this time Present on Admission?: Yes History of Present Illness Chief Complaint: The patient presents to the emergency department with complaint of 6 days of intermittent fevers, chills, sweats, cough and shortness of breath Primary Care Provider: Brissa Ly PA-C The patient is a 54-year-old male with a past medical history including diabetes mellitus, morbid obesity, hypertension, dyslipidemia, DVT, GERD and asthma. In addition to the symptoms above, he is also had tremendous thirst, and an upset stomach. He does not regularly check his blood sugar so is unaware of what his sugars have been. He reports that he has begun to use his nighttime CPAP during the daytime as well to try to help with his breathing. He had a telehealth appointment by his PCP yesterday, and was prescribed antibiotics. He was advised to have a COVID-19 test by his PCP during the telehealth visit but declined. In the emergency department patient had the following significant laboratories: WBC 11.45, potassium 2.9, albumin 2.6, glucose 156, AST 54, D-dimer 850. Imaging studies included chest x-ray and CT of chest, both of which suggested viral pneumonia. He underwent an initial SARSCoV-2 RNA, NAAT test that was n egative. However it was agreed by Dr. Garcia and myself that the patient most likely had COVID-19, and the patient therefore underwent a COVID-19 PCR test which was positive. His lowest pulse ox recorded was 90% on room air, and improved to 93-94% on 4 L nasal cannula oxygen. Allergies Allergy/AdvReac Type Severity Reaction Status Date / Time No Known Allergies Allergy Unverified 01/17/20 19:26 Home Medications Medication Instructions Recorded Confirmed Type aspirin 325 mg PO PM 02/07/18 01/17/20 History hydrochlorothiazide 25 mg PO QAM 02/07/18 01/17/20 History metformin 1,000 mg PO BID 02/07/18 01/17/20 History metoprolol tartrate 25 mg PO BID 02/07/18 01/17/20 History albuterol sulfate 2 inh INHALATION QID PRN 05/12/19 01/17/20 History ascorbic acid (vitamin C) 1 g PO BID 05/12/19 01/17/20 History glimepiride 4 mg PO BID 05/12/19 01/17/20 History losartan 100 mg PO QAM 05/12/19 01/17/20 History omeprazole 20 mg PO QAM 05/12/19 01/17/20 History acetaminophen [Tylenol Extra 1,000 mg PO Q6H PRN 01/17/20 01/17/20 History Strength] dulaglutide [Trulicity] 0.5 mg SUBCUT WK 01/17/20 01/17/20 History empagliflozin [Jardiance] 10 mg PO QAM 01/17/20 01/17/20 History zinc 50 mg PO QAM 01/17/20 01/17/20 History Past Med/Surg History Medical History (Updated 01/18/20 @ 02:54 by Jean Carlos Daley MD) Diabetes DVT (deep venous thrombosis) Dyslipidemia GERD (gastroesophageal reflux disease) Hypertension Morbid obesity Obstructive sleep apnea on CPAP Social History Smoking Status: Never smoker Hx Alcohol Use: No Hx Substance Use: No Preferred Language: Chinese Director Funeral Required: No Beliefs That Will Affect Care: None marital status: Current Living Situation: Spouse and Family current occupational status: employed Other Information That Helps Us Care for You: No Feels Safe at Home: No Is there a partner from a previous relationship who is making you feel unsafe now?: No Any Concerns about Your Family Situation: No Would You Like to Speak to Someone About Your Situation: No Safety Concerns: Feels Safe At This Time Assistive Devices: CPAP Review of Systems Review of Systems: The patient denies chest pain, palpitations, lower extremity swelling, nausea, vomiting, diarrhea , constipation, abdominal pain, pelvic pain, blood in urine or stool, dysuria, urinary frequency or urgency, lightheadedness, dizziness, headache, memory loss, loss of consciousness, rash, abnormal bruising or bleeding, imbalance, focal weakness, numbness or tingling in arms or legs, generalized arthralgias or myalgias, back or neck pain, or night sweats. The review of systems is otherwise negative other than for that already noted a marybel, and at least 10 systems have been reviewed. Physical Exam Physical Exam: The patient is awake, alert and oriented 3, well developed and well nourished, normocephalic and atraumatic, lying in bed and in no acute distress. HEENT--PERRL, EOMI, mucous membranes and oropharynx dry. Neck--supple. No JVD. No bruits. Thyroid normal, trachea midline, no adenopathy. Heart--normal S1 and S2. No murmurs, rubs or gallops. Lungs--coarse breath sounds bilaterally. No respiratory distress, no accessory muscle use. Abdomen--normal bowel sounds and soft. Nontender. Nondistended. Morbidly obese Extremities--no cyanosis or clubbing. No edema. Dermatologic--normal skin turgor, normal color, no abnormal lymph nodes, no rash. Neurologic--cranial nerves II through XII grossly intact. Rheumatologic--normal range of motion. Psychiatric--normal affect. Results & Data Results & Data ([facility]) Vital Signs (Past 12 Hours) Vital Signs Pulse Resp BP Pulse Ox 01/17/20 22:00 98 H 22 173/85 H 93 01/17/20 21:30 101 H 21 160/87 H 94 01/17/20 21:00 98 H 21 175/81 H 95 01/17/20 20:30 99 H 24 165/85 H 90 01/17/20 20:00 98 H 19 152/75 H 98 01/17/20 19:30 96 H 20 135/87 96 Laboratory Results Laboratory Results WBC 11.45 K/uL (4.8-10.8) H 01/17/20 17:47 RBC 5.05 M/uL (4.7-6.1) 01/17/20 17:47 Hgb 15.1 g/dL (14.0-18.0) 01/17/20 17:47 Hct 44.5 % (42-52) 01/17/20 17:47 MCV 88.1 fL (80-100) 01/17/20 17:47 MCH 29.9 pg (25-34) 01/17/20 17:47 MCHC 33.9 g/dL (32-36) 01/17/20 17:47 RDW Std Deviation 45.1 fL (36.4-46.3) 01/17/20 17:47 RDW Coeff of Real 14.0 % (11.5-14.5) 01/17/20 17:47 Plt Count 228 K/uL (130-400) 01/17/20 17:47 MPV 10.8 fL (7.4-10.4) H 01/17/20 17:47 D-Dimer 850 ug/L FEU (0-500) H* 01/17/20 23:20 Sodium 138 mmol/L (136-145) 01/17/20 17:47 Potassium 2.9 mmol/L (3.5-5.1) L 01/17/20 17:47 Chloride 100 mmol/L (98-107) 01/17/20 17:47 Carbon Dioxide 26 mmol/L (21-32) 01/17/20 17:47 Anion Gap 12.0 (3-11) H 01/17/20 17:47 BUN 16 mg/dl (7-18) 01/17/20 17:47 Creatinine 0.98 mg/dl (0.6-1.4) 01/17/20 17:47 Est Cr Clr Drug Dosing Not Reportable 01/17/20 17:47 Est GFR ( Amer) 100.2 01/17/20 17:47 Est GFR (Non-Af Amer) 86.4 01/17/20 17:47 BUN/Creatinine Ratio 16.4 (10-20) 01/17/20 17:47 Glucose 156 mg/dl (70-99) H 01/17/20 17:47 POC Glucose 188 mg/dl (70-99) H 01/18/20 00:33 Lactate 1.7 mmol/L (0.4-2.0) 01/17/20 17:47 Calcium 8.2 mg/dl (8.5-10.1) L 01/17/20 17:47 Total Bilirubin 0.6 mg/dl (0.2-1) 01/17/20 17:47 Direct Bilirubin 0.2 mg/dl (0-0.2) 01/17/20 17:47 AST 54 U/L (15-37) H 01/17/20 17:47 ALT 45 U/L (12-78) 01/17/20 17:47 Alkaline Phosphatase 71 U/L (45-117) 01/17/20 17:47 Troponin I 0.039 ng/ml (0-0.045) 01/17/20 17:47 NT-Pro-B Natriuret Pep 76 pg/ml (0-900) 01/17/20 17:47 Total Protein 7.5 gm/dl (6.4-8.2) 01/17/20 17:47 Albumin 2.6 gm/dl (3.4-5.0) L 01/17/20 17:47 COVID-19 Eval Order CovFluRsv at [facility] 01/17/20 20:20 COVID-19 PCR POSITIVE (Negative) A* 01/17/20 20:20 Influenza Type A (PCR) Negative (Neg) 01/17/20 20:20 Influenza Type B (PCR) Negative (Neg) 01/17/20 20:20 RSV (RT-PCR) Negative (Neg) 01/17/20 20:20 SARS-CoV-2, RNA, NAAT NEGATIVE (NEGATIVE) 01/17/20 17:47 Diagnostic Findings [facility], [id number] XRay Report Patient: RANULFO HIGGINBOTHAM Date: 01/17/20MR#: [id number]: Marjan ROWELL RDAcct ID:[id number]: Date: 1965[facility] Zip: [place] [id number]: [id number]: EDSex: MRoom/Bed:Att Phy:Diagnosis: HYPERTENSIONPri Phy: PCP,NOService Date: 01/17/20Fa Phy:Interpreting Phy: [facility]: Ordering Phy: Annabella Garcia M.D. cc: ~ XR chest 1V portable CLINICAL HISTORY: SOB COMPARISON STUDY: 05/12/2019 FINDINGS: The heart is enlarged. There is superior mediastinal widening, nonspecific finding which could be secondary to fat deposition given the patient's body habitus. There are bilateral airspace opacities left greater than right. Diagnostic considerations include asymmetric pulmonary edema versus a multifocal pneumonia. Correlation with Covid 19 testing is recommended.[ IMPRESSION: 1. Bilateral pulmonary airspace opacities left greater than right. Diagnostic considerations include multifocal pneumonia versus asymmetric pulmonary edema. Correlation with Covid 19 testing is recommended. ACT 112: Negative or not required by law. Electronically signed by: Benjamín Terrell M.D. 01/17/2020 6:21 PM Dictated: 01/17/201818Transcribed: 01/17/20 1819 [facility], [id number] CT Scan Report Patient: RANULFO HIGGINBOTHAM Date: 01/17/20MR#: [id number]: Marjan ROWELL RDAcct ID:[id number]: Date: 1965[facility] Zip: [place] [id number]: [id number]: EDSex: MRoom/Bed:Att Phy:Diagnosis: HYPERTENSIONPri Phy: Brissa Ly PA-CService Date: 01/17/20Fam Phy: Brissa Ly PA-CInterpreting Phy: Benjamín Terrell MDAdmit Phy: Ordering Phy: Annabella Garcia M.D. cc: ~ CT ANGIOGRAM OF THE CHEST CLINICAL HISTORY: Chest pain and shortness of breath NEGATIVE COVID 19 TEST. COMPARISON STUDY: February 07, 2018 TECHNIQUE: Following the IV administration of 120 mL of Optiray-320, CT angiogram of the thorax was performed from the thoracic inlet to the lung bases utilizing the pulmonary embolus protocol. Images are reviewed in the axial, sagittal, and coronal planes. IV contrast was administered without complication. MIP imaging was performed. A dose lowering technique was utilized adhering to the principles of ALARA. CT DOSE: 919.66 mGy.cm FINDINGS: There is hepatic steatosis Borderline enlarged paratracheal lymph nodes, are likely reactive. There was no evidence of thoracic aortic dilatation. No pulmonary artery filling defects are visualized. Evaluation of lower lobe pulmonary artery branches is limited due to respiratory motion artifact. No pleural effusions are visualized. There are multifocal groundglass pulmonary opacities. Despite the reported negative Covid 19 test, the findings are viewed as suspicious for Covid 19 pneumonia. Retesting is recommended IMPRESSION: 1. Motion degraded study 2. Multifocal groundglass pulmonary opacities with a somewhat peripheral distribution. Although nonspecific, the findings are viewed as suspicious for Covid 19 pneumonia. Repeat Covid 19 testing is recommended. 3. No evidence of acute pulmonary embolism although evaluation of lower lobe pulmonary artery branches is limited due to respiratory motion artifact. 4. Hepatic steatosis ACT 112: Negative or not required by law. Electronically signed by: Benjamín Terrell M.D. 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
[2020-01-17 23:52] LABS: D Dimer 850 ug/L FEU (0-500)
[2020-01-18] MEDS ORDERED: MAGNESIUM HYDROXIDE SUSP 30 ML UDC PO PRN (00:24)
[2020-01-18] MEDS ORDERED: ACETAMINOPHEN 500 MG TAB PO PRN (00:24)
[2020-01-18] MEDS ORDERED: GLUCOSE 10 TABS/TUBE PO PRN (00:24)
[2020-01-18] MEDS ORDERED: DEXTROSE 50% 50 ML SYRINGE IV PRN (00:24)
[2020-01-18] MEDS ORDERED: GLUCAGON FOR INJ 1 MG VIAL SQ PRN (00:24)
[2020-01-18] MEDS ORDERED: GLUCOSE 40% GEL 15 GM TUBE PO PRN (00:24)
[2020-01-18] MEDS ORDERED: ACETAMINOPHEN 325 MG TAB PO PRN (00:24)
[2020-01-18] MEDS ORDERED: ONDANSETRON INJ 2 MG/ML 2 ML VIAL IV PRN (00:24)
[2020-01-18] MEDS ORDERED: CARBOHYDRATES FOR HYPOGLYCEMIA PO PRN (00:24)
[2020-01-18] MEDS ORDERED: ALUMINUM/MAGNESIUM SUSP 30 ML UDC PO PRN (00:24)
[2020-01-18] MEDS ORDERED: REMDESIVIR 200 MG in SODIUM CHLORIDE 0.9% 210 ML IV STA (00:53)
[2020-01-18] MEDS: ASCORBIC ACID 500 MG TAB PO SCH ×3 (01:37→21:38)
[2020-01-18] MEDS: METOPROLOL TARTRATE 25 MG TAB PO SCH ×3 (01:38→21:37)
[2020-01-18] MEDS: INSULIN ASPART 100 UNITS/ML 3 ML PEN SC SCH ×5 (01:50→21:44)
[2020-01-18] MEDS: ENOXAPARIN 80 MG/0.8 ML SYR SQ SCH ×2 (03:15→21:41)
[2020-01-18] MEDS: SODIUM CHLORIDE 0.9% 10ML FLUSH IV SCH (03:16)
[2020-01-18 07:31] LABS: Basophils # (auto) 0.02 K/uL (0-0.2); Basophils % (auto) 0.2 %; Hematocrit (blood only) 43.2 % (42-52); Hemoglobin 14.3 g/dL (14.0-18.0); Immature Granulocytes # (auto) 0.02 K/uL (0.00-0.02); Immature Granulocytes % (auto) 0.2 %; Lymphocytes # (auto) 1.22 K/uL (1.2-3.4); Lymphocytes % (auto) 12.8 %; Mean Corpuscular Hemoglobin 29.5 pg (25-34); Mean Corpuscular Hgb Conc 33.1 g/dL (32-36); Mean Corpuscular Volume 89.3 fL (80-100); Mean Platelet Volume 11.2 fL (7.4-10.4); Monocytes % (auto) 4.2 %; Neutrophils % (auto) 82.6 %; Platelet Count 250 K/uL (130-400); RDW Standard Deviation 46.3 fL (36.4-46.3); Red Blood Count 4.84 M/uL (4.7-6.1); White Blood Count 9.56 K/uL (4.8-10.8)
[2020-01-18 07:52] LABS: Estimated Average Glucose 171 mg/dl; Hemoglobin A1C 7.6 % (4.5-5.6)
[2020-01-18 07:54] LABS: Albumin Level 2.3 gm/dl (3.4-5.0); BUN Creatinine Ratio 21.3 (10-20); Creatinine Clr Calc Pharmacy 152.3 ml/min; Est GFR (African American) 114.8; Est GFR (Non-African American) 99.1; Magnesium 2.6 mg/dl (1.8-2.4); Potassium 3.1 mmol/L (3.5-5.1)
[2020-01-18 07:57] LABS: Albumin Globulin Ratio 0.5 (0.9-2); Bilirubin,Total 0.5 mg/dl (0.2-1); Globulin 5.1 gm/dl (2.5-4.0); Total Protein 7.4 gm/dl (6.4-8.2)
--- NOTE | 2020-01-18 08:25 | Hospitalist Progress Note ---
Date of Service January 18, 2020 Assessment & Plan (1) Pneumonia due to 2019 novel coronavirus: Pneumonia due to COVID-19 virus with hypoxia- Decadron 6 mg IV daily LD 01/25 Convalescent plasma, consent obtained Remdesivir IV per protocol LD 01/20 Azithromycin 500 mg IV daily LD 01/24(7 day course) Ventolin HFA 2 puffs 4 times daily, and every 2 hours as needed Nasal cannula titration to keep pulse ox around 93-94% (2) Hypoxia: See above (3) Diabetes: Glucose 156 upon admission, with decreased oral intake during illness. Hold Trulicity, Jardiance, glimepiride and metformin. Placed on Accu-Cheks before meals and at bedtime with NovoLog coverage per scale Check hemoglobin A1c (4) Morbid obesity: Noted as risk factor BMI is 58.2 (5) Hypertension: Continue metoprolol tartrate 25 mg p.o. twice daily, losartan 100 mg p.o. every morning and aspirin 325 mg daily. Hold HCTZ due to hypokalemia. continue to replete potassium (6) DVT (deep venous thrombosis): Place on Lovenox prophylaxis for COVID-19. 0.5 mg/kg dosing (7) GERD (gastroesophageal reflux disease): Omeprazole 20 mg daily to be changed to pantoprazole 40 mg daily (8) Acute hypokalemia: Replace as noted and repeat levels (9) Obstructive sleep apnea on CPAP: CPAP at bedtime as needed (10) Dyslipidemia: Not on treatment at this time Admission and Anticipated Discharge Date Admission Date: January 17, 2020 Subjective Patient only feels slightly dyspneic he is on 4 L nasal cannula satting in the 90s. He feels he may have had a work exposure from exposure somewhere around [facility] which is a little over a week ago. He does have a cough Review of Systems Review of Systems: Mild distress and fatigue no headache, blurry or double vision no speech or swallowing issues no chest pain, pressure or palpitations Increased shortness of breath, nonproductive cough dyspnea on exertion no abdominal pain, nausea or vomiting, diarrhea or constipation no dysuria, hematuria or frequency no focal joint pain or swelling no back pain, CVA tenderness or radicular pain no bruising, bleeding or rashes no focal signs of weakness or numbness or altered sensation no complaints of anxiety or depression.. Physical Exam Physical Exam: The patient appeared well nourished and normally developed. He is morbidly obese Vital signs as documented. Head exam is normocephalic atraumatic no scleral icterus Neck is without JVD, thyromegaly, or carotid bruits. Lungs are fine rales at the bases clearing at the apex Cardiac exam, Rhythm is regular.. No murmurs, rubs or gallops. Abdominal exam reveals normal bowel sounds, soft non tender, no masses Extremities are nonedematous and both pedal pulses are present Neurologic exam is alert and oriented, no focal loss of strength or sensation Skin is without bruises or rashes Psychologically is without concerns for anxiety or depression. Results & Data Results & Data ([facility]) Vital Signs (Past 12 Hours) Vital Signs Temp Pulse Pulse Resp BP BP Pulse Ox 01/18/20 07:15 97.5 F L 76 18 145/90 H 91 01/18/20 02:55 97.9 F 80 20 164/91 H 94 01/18/20 00:32 98.4 F 98 H 20 152/90 H 93 01/18/20 00:15 97 H 01/17/20 23:00 101 H 24 154/82 H 92 01/17/20 22:30 96 H 18 163/80 H 93 01/17/20 22:00 98 H 22 173/85 H 93 01/17/20 21:30 101 H 21 160/87 H 94 01/17/20 21:00 98 H 21 175/81 H 95 01/17/20 20:30 99 H 24 165/85 H 90 PG Care Time/CCT Total # of Minutes Spent Total Time Spent with Patient: Total time spent is greater than 50% in coordination of care (as documented) at patient's floor/unit and/or counseling patient: Coding Level of Care Code 19573 Subseq Hosp Care Lvl 3 Diagnoses Pneumonia due to 2019 novel coronavirus U07.1; J12.89 Hypoxia R09.02 Diabetes E11.9 Diabetes mellitus complication status: without complication 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
[2020-01-18] MEDS: dexAMETHasone 6 MG in SYRINGE 0 ML IV SCH (08:34)
[2020-01-18] MEDS: PANTOprazole 40 MG TAB PO SCH (08:34)
[2020-01-18] MEDS: LOSARTAN POTASSIUM 50 MG TAB PO SCH (08:34)
[2020-01-18] MEDS: ZINC SULFATE 220 MG CAPSULE PO SCH (08:35)
[2020-01-18] MEDS: AZITHROMYCIN 500 MG in DEXTROSE 5% 250 ML IV SCH (08:35)
[2020-01-18] MEDS: POTASSIUM CHLORIDE CRTAB 20 MEQ TABCR PO SCH ×2 (09:18→21:37)
--- NOTE | 2020-01-18 10:42 | Electrocardiogram Report ---
Test Reason : Blood Pressure : / mmHG Vent. Rate : 104 BPM Atrial Rate : 104 BPM P-R Int : 154 ms QRS Dur : 084 ms QT Int : 418 ms P-R-T Axes : 024 -13 011 degrees QTc Int : 549 ms Sinus tachycardia Nonspecific ST and T wave abnormality Abnormal ECG When compared with ECG of 12-MAY-2019 12:46, Borderline criteria for Inferior infarct are no longer Present ST now depressed in Lateral leads QT has lengthened Confirmed by Hammad Iverson ([id number]) on 01/18/2020 10:42:35 AM Referred By: REFERRED SELF Confirmed By:Hammad Iverson
[2020-01-18] MEDS: ASPIRIN 325 MG ECTAB PO SCH (21:37)
[2020-01-18] MEDS: REMDESIVIR 100 MG in SODIUM CHLORIDE 0.9% 230 ML IV SCH (23:06)
[2020-01-19] MEDS: SODIUM CHLORIDE 0.9% 10ML FLUSH IV SCH ×2 (00:20→21:53)
[2020-01-19 07:23] LABS: Hematocrit (blood only) 40.7 % (42-52); Hemoglobin 13.9 g/dL (14.0-18.0); Mean Corpuscular Hemoglobin 30.3 pg (25-34); Mean Corpuscular Hgb Conc 34.2 g/dL (32-36); Mean Corpuscular Volume 88.9 fL (80-100); Mean Platelet Volume 11.4 fL (7.4-10.4); Platelet Count 293 K/uL (130-400); RDW Coefficient of Variation 13.8 % (11.5-14.5); RDW Standard Deviation 45.1 fL (36.4-46.3); Red Blood Count 4.58 M/uL (4.7-6.1); White Blood Count 9.39 K/uL (4.8-10.8)
[2020-01-19 07:45] LABS: Basophils # (auto) 0.03 K/uL (0-0.2); Basophils % (auto) 0.3 %; Immature Granulocytes # (auto) 0.02 K/uL (0.00-0.02); Immature Granulocytes % (auto) 0.2 %; Lymphocytes # (auto) 1.61 K/uL (1.2-3.4); Lymphocytes % (auto) 17.1 %; Monocytes # (auto) 0.85 K/uL (0.11-0.59); Monocytes % (auto) 9.1 %; Neutrophils # (auto) 6.88 K/uL (1.4-6.5); Neutrophils % (auto) 73.3 %
[2020-01-19 07:55] LABS: Albumin Level 2.3 gm/dl (3.4-5.0); BUN Creatinine Ratio 29.7 (10-20); Calcium 8.3 mg/dl (8.5-10.1); Creatinine Clr Calc Pharmacy 157.5 ml/min; Est GFR (African American) 116.6; Est GFR (Non-African American) 100.6; Magnesium 2.4 mg/dl (1.8-2.4); Potassium 3.3 mmol/L (3.5-5.1)
[2020-01-19 07:59] LABS: Albumin Globulin Ratio 0.5 (0.9-2); Bilirubin,Total 0.4 mg/dl (0.2-1); Globulin 4.4 gm/dl (2.5-4.0); Total Protein 6.7 gm/dl (6.4-8.2)
[2020-01-19] MEDS: INSULIN ASPART 100 UNITS/ML 3 ML PEN SC SCH ×4 (08:57→21:33)
[2020-01-19] MEDS: LOSARTAN POTASSIUM 50 MG TAB PO SCH (09:00)
[2020-01-19] MEDS: METOPROLOL TARTRATE 25 MG TAB PO SCH ×2 (09:00→20:53)
[2020-01-19] MEDS: POTASSIUM CHLORIDE CRTAB 20 MEQ TABCR PO SCH ×3 (09:00→20:53)
[2020-01-19] MEDS: dexAMETHasone 6 MG in SYRINGE 0 ML IV SCH (09:00)
[2020-01-19] MEDS: ZINC SULFATE 220 MG CAPSULE PO SCH (09:01)
[2020-01-19] MEDS: ASCORBIC ACID 500 MG TAB PO SCH ×2 (09:01→20:54)
[2020-01-19] MEDS: PANTOprazole 40 MG TAB PO SCH (09:01)
[2020-01-19] MEDS: AZITHROMYCIN 500 MG in DEXTROSE 5% 250 ML IV SCH (09:30)
--- NOTE | 2020-01-19 09:43 | Hospitalist Progress Note ---
Date of Service January 19, 2020 Assessment & Plan (1) Pneumonia due to 2019 novel coronavirus: Pneumonia due to COVID-19 virus with hypoxia- Decadron 6 mg IV daily LD 01/25, can change to PO if he is ready for discharge in next 1-2 days Convalescent plasma administered, tolerated well Remdesivir IV per protocol LD 01/20 Azithromycin 500 mg IV daily LD 01/24(7 day course) Ventolin HFA 2 puffs 4 times daily, and every 2 hours as needed Nasal cannula titration to keep pulse ox around 93-94%, today he is on 4L, asked RN to try to wean no distress at all, would consider discharging if he is stable on 2L (2) Hypoxia: 4L NC, no distress, try to wean as tolerated, saturation goal is 90% (3) Diabetes: Glucose 156 upon admission, with decreased oral intake during illness. Hold Trulicity, Jardiance, glimepiride and metformin. Placed on Accu-Cheks before meals and at bedtime with NovoLog coverage per scale no hypoglycemia control hyperglycemia since he is on Decadron, Novolog is sufficient (4) Morbid obesity: Noted as risk factor BMI is 58.2 (5) Hypertension: Continue metoprolol tartrate 25 mg p.o. twice daily, losartan 100 mg p.o. every morning and aspirin 325 mg daily. Hold HCTZ due to hypokalemia. continue to replete potassium, 3.3 today (6) DVT (deep venous thrombosis): Place on Lovenox prophylaxis for COVID-19. 0.5 mg/kg dosing (7) GERD (gastroesophageal reflux disease): Omeprazole 20 mg daily to be changed to pantoprazole 40 mg daily (8) Acute hypokalemia: K is 3.3, will increase replacement to TID from BID repeat tomorrow (9) Obstructive sleep apnea on CPAP: CPAP at bedtime as needed he cannot tolerate our masks, use nasal canula as alternative (10) Dyslipidemia: Not on treatment at this time Admission and Anticipated Discharge Date Admission Date: January 17, 2020 Subjective patient feeling well, not short of breath at rest at all, just when walking in the room minimal cough, appetite is normal, moving his bowels, making urine received plasma treatment, tolerated well reviewed chart, reviewed labs discussed with him that we will try to wean down on oxygen, possible that we could discharge him if he gets down to 2L and remains stable he agrees with this plan Review of Systems Review of Systems: All systems reviewed & are unremarkable except as noted in Subjective Constitutional: no fever, no chills, no sweats, no fatigue and no weakness Respiratory: + cough and + dyspnea on exertion; no dyspnea and no sputum production Cardiovascular: no chest pain Physical Exam Constitutional: well developed, well nourished and + morbidly obese; no acute distress Neck: trachea midline and + thick neck; no anterior neck swelling Respiratory: normal respiratory effort; no respiratory distress Auscultation: no crackles and no rhonchi Cardiovascular: RRR, no murmur, no edema Gastrointestinal (Abdomen): normal bowel sounds, soft, nontender, no hepatosplenomegaly Musculoskeletal: no cyanosis or clubbing, extremities motor strength 5/5 Skin: no rashes, warm and dry Neurologic: patellar DTR's 2+ bilat, sensation intact and PERRL, EOMI, accommodation nl, no face palsy, no dysarthria Psychiatric: A+Ox3, euthymic affect Lymphatic: no cervical or axillary lymphadenopathy Results & Data Results & Data ([facility]) Vital Signs (Past 12 Hours) Vital Signs Temp Pulse Pulse Resp BP BP Pulse Ox 01/19/20 07:54 36.5 C 65 20 134/69 95 01/19/20 02:56 36.6 C 60 19 125/75 95 01/19/20 00:34 71 18 94 01/19/20 00:20 65 01/18/20 23:30 01/18/20 23:15 36.4 C L 67 19 149/83 H 93 01/18/20 22:13 36.5 C 66 18 155/85 H 93 Pulse Ox 01/19/20 07:54 01/19/20 02:56 01/19/20 00:34 01/19/20 00:20 01/18/20 23:30 93 01/18/20 23:15 01/18/20 22:13 Laboratory Results Laboratory Results - last 24 hr 01/18/20 01/18/20 01/18/20 05:54 11:23 16:22 WBC RBC Hgb Hct MCV MCH MCHC RDW Std Deviation RDW Coeff of Real Plt Count MPV Immature Gran % (Auto) Neut % (Auto) Lymph % (Auto) [place] % (Auto) Eos % (Auto) Baso % (Auto) Neut # (Auto) Lymph # (Auto) [place] # (Auto) Eos # (Auto) Baso # (Auto) Immature Gran # (Auto) Sodium Potassium Chloride Carbon Dioxide Anion Gap BUN Creatinine Est Cr Clr Drug Dosing Est GFR ( Amer) Est GFR (Non-Af Amer) BUN/Creatinine Ratio Glucose POC Glucose 280 H 267 H Calcium Magnesium Total Bilirubin AST ALT Alkaline Phosphatase Total Protein Albumin Globulin Albumin/Globulin Ratio Blood Type O Positive Antibody Screen NEGATIVE 01/18/20 01/19/20 01/19/20 20:33 06:29 06:29 WBC 9.39 RBC 4.58 L Hgb 13.9 L Hct 40.7 L MCV 88.9 MCH 30.3 MCHC 34.2 RDW Std Deviation 45.1 RDW Coeff of Real 13.8 Plt Count 293 MPV 11.4 H Immature Gran % (Auto) 0.2 Neut % (Auto) 73.3 Lymph % (Auto) 17.1 [place] % (Auto) 9.1 Eos % (Auto) 0.0 Baso % (Auto) 0.3 Neut # (Auto) 6.88 H Lymph # (Auto) 1.61 [place] # (Auto) 0.85 H Eos # (Auto) 0.00 Baso # (Auto) 0.03 Immature Gran # (Auto) 0.02 Sodium 139 Potassium 3.3 L Chloride 102 Carbon Dioxide 29 Anion Gap 8.0 BUN 24 H Creatinine 0.80 Est Cr Clr Drug Dosing 157.5 Est GFR ( Amer) 116.6 Est GFR (Non-Af Amer) 100.6 BUN/Creatinine Ratio 29.7 H Glucose 275 H POC Glucose 253 H Calcium 8.3 L Magnesium 2.4 Total Bilirubin 0.4 AST 42 H ALT 41 Alkaline Phosphatase 70 Total Protein 6.7 Albumin 2.3 L Globulin 4.4 H Albumin/Globulin Ratio 0.5 L Blood Type Antibody Screen 01/19/20 07:22 WBC RBC Hgb Hct MCV MCH MCHC RDW Std Deviation RDW Coeff of Real Plt Count MPV Immature Gran % (Auto) Neut % (Auto) Lymph % (Auto) [place] % (Auto) Eos % (Auto) Baso % (Auto) Neut # (Auto) Lymph # (Auto) [place] # (Auto) Eos # (Auto) Baso # (Auto) Immature Gran # (Auto) Sodium Potassium Chloride Carbon Dioxide Anion Gap BUN Creatinine Est Cr Clr Drug Dosing Est GFR ( Amer) Est GFR (Non-Af Amer) BUN/Creatinine Ratio Glucose POC Glucose 254 H Calcium Magnesium Total Bilirubin AST ALT Alkaline Phosphatase Total Protein Albumin Globulin Albumin/Globulin Ratio Blood Type Antibody Screen Medications Administered Current Inpatient Medications Acetaminophen (Acetaminophen 325 Mg Tab) 650 mg PO Q4H PRN PRN Reason: Pain or Fever Stop: 02/17/20 00:23 Al Hydrox/Mg Hydrox/Simethicone (Aluminum/Magnesium Susp 30 Ml Udc) 15 ml PO Q4H PRN PRN Reason: Dyspepsia Stop: 02/17/20 00:23 Ascorbic Acid (Ascorbic Acid 500 Mg Tab) 1,000 mg PO BID LIBAN Stop: 02/17/20 00:23 Last Admin: 01/19/20 09:01 Dose: 1,000 mg Documented by: Aspirin (Aspirin 325 Mg Ectab) 325 mg PO PM LIBAN Stop: 02/17/20 20:59 Last Admin: 01/18/20 21:37 Dose: 325 mg Documented by: Dextrose (Dextrose 50% 50 Ml Syringe) 25 - 50 ml IV UD PRN; Protocol PRN Reason: Hypoglycemia Protocol Stop: 02/17/20 00:23 Enoxaparin Sodium (Enoxaparin 80 Mg/0.8 Ml Syr) 80 mg SQ Q24H LIBAN Stop: 02/17/20 02:59 Last Admin: 01/18/20 21:41 Dose: 80 mg Documented by: Glucagon (Glucagon For Inj 1 Mg Vial) 1 mg SQ UD PRN; Protocol PRN Reason: Hypoglycemia Protocol Stop: 02/17/20 00:23 Glucose (Glucose 10 Tabs/Tube) 4 - 8 tabs PO UD PRN; Protocol PRN Reason: Hypoglycemia Protocol Stop: 02/17/20 00:23 Glucose (Glucose 40% Gel 15 Gm Tube) 15 - 30 gm PO UD PRN; Protocol PRN Reason: Hypoglycemia Protocol Stop: 02/17/20 00:23 Dexamethasone 6 mg/ Syringe 1.5 mls @ 1 mls/min IV QAM [facility]AN Stop: 02/17/20 08:59 Last Admin: 01/19/20 09:00 Dose: 1 mls/min Documented by: Azithromycin 500 mg/ Dextrose 255 mls @ 125 mls/hr IV DAILY [facility]AN Stop: 01/25/20 08:59 Last Infusion: 01/18/20 10:40 Dose: Infused Documented by: Remdesivir 100 mg/ Sodium (Chloride) 250 mls @ 250 mls/hr IV Q24H [facility]; Protocol Stop: 01/21/20 20:59 Last Infusion: 01/19/20 00:20 Dose: Infused Documented by: Insulin Aspart (Insulin Aspart 100 Units/Ml 3 Ml Pen) 0 units SC ACHS [facility] Stop: 02/17/20 01:59 Last Admin: 01/19/20 08:57 Dose: 8 units Documented by: Losartan Potassium (Losartan Potassium 50 Mg Tab) 100 mg PO QAM [facility] Stop: 02/17/20 08:59 Last Admin: 01/19/20 09:00 Dose: 100 mg Documented by: Magnesium Hydroxide (Magnesium Hydroxide Susp 30 Ml Udc) 30 ml PO Q12H PRN PRN Reason: Constipation Stop: 02/17/20 00:23 Metoprolol Tartrate (Metoprolol Tartrate 25 Mg Tab) 25 mg PO BID [facility] Stop: 02/17/20 00:23 Last Admin: 01/19/20 09:00 Dose: 25 mg Documented by: Miscellaneous (Carbohydrates For Hypoglycemia ) 15 - 30 gm PO UD PRN PRN Reason: Hypoglycemia Protocol Stop: 02/17/20 00:23 Ondansetron HCl (Ondansetron Inj 2 Mg/Ml 2 Ml Vial) 4 mg IV Q6H PRN PRN Reason: Nausea Stop: 02/17/20 00:23 Pantoprazole Sodium (Pantoprazole 40 Mg Tab) 40 mg PO QAM [facility] Stop: 02/17/20 08:59 Last Admin: 01/19/20 09:01 Dose: 40 mg Documented by: Potassium Chloride (Potassium Chloride Crtab 20 Meq Tabcr) 20 meq PO TID [facility] Stop: 01/20/20 21:01 Last Admin: 01/19/20 09:00 Dose: 20 meq Documented by: Sodium Chloride (Sodium Chloride 0.9% 10ml Flush) 30 ml IV Q24H [facility] Stop: 01/22/20 03:01 Last Admin: 01/19/20 00:20 Dose: 30 ml Documented by: Zinc Sulfate (Zinc Sulfate 220 Mg Capsule) 220 mg PO QAM [facility] Stop: 02/17/20 08:59 Last Admin: 01/19/20 09:01 Dose: 220 mg Documented by: PG Care Time/CCT Total # of Minutes Spent Total Time Spent with Patient: Total time spent is greater than 50% in coordination of care (as documented) at patient's floor/unit and/or counseling patient: Coding Level of Care Code 04139 Subseq Hosp Care Lvl 3 Diagnoses Pneumonia due to 2019 novel coronavirus U07.1; J12.89 Hypoxia R09.02 Diabetes E11.9 Diabetes mellitus complication status: without complication Diabetes mellitus skilled nursing insulin use: without skilled nursing use Diabetes mellitus type: type 2 Morbid obesity E66.01 Hypertension I10 DVT (deep venous thrombosis) I82.409 GERD (gastroesophageal reflux disease) K21.9 Acute hypokalemia E87.6 Obstructive sleep apnea on CPAP G47.33; Z99.89 Dyslipidemia E78.5 (1) Diabetes Diabetes mellitus complication status: without complication Diabetes mellitus skilled nursing insulin use: without skilled nursing use Diabetes mellitus type: type 2 Qualified Code(s): E11.9 - Type 2 diabetes mellitus without complications
[2020-01-19] MEDS ORDERED: NovoLIN-N (NPH) PER UNIT CHARGE SC STA (12:56)
[2020-01-19] MEDS: ENOXAPARIN 80 MG/0.8 ML SYR SQ SCH (19:35)
[2020-01-19] MEDS: REMDESIVIR 100 MG in SODIUM CHLORIDE 0.9% 230 ML IV SCH (20:50)
[2020-01-19] MEDS: ASPIRIN 325 MG ECTAB PO SCH (20:53)
[2020-01-19] MEDS ORDERED: PHARMACY GLYCEMIC MGMT CONSULT PRN (20:55)
[2020-01-19] MEDS ORDERED: INSULIN GLARGINE SOLOSTAR 100 UNITS/ML 3 ML PEN SC ONE (21:00)
[2020-01-20] MEDS ORDERED: INSULIN ASPART 100 UNITS/ML 3 ML PEN SC ONE (02:00)
[2020-01-20 06:59] LABS: Hematocrit (blood only) 40.4 % (42-52); Hemoglobin 13.3 g/dL (14.0-18.0); Mean Corpuscular Hemoglobin 29.1 pg (25-34); Mean Corpuscular Hgb Conc 32.9 g/dL (32-36); Mean Corpuscular Volume 88.4 fL (80-100); Platelet Count 327 K/uL (130-400); RDW Coefficient of Variation 13.6 % (11.5-14.5); Red Blood Count 4.57 M/uL (4.7-6.1); White Blood Count 10.68 K/uL (4.8-10.8)
[2020-01-20 07:26] LABS: Basophils # (auto) 0.01 K/uL (0-0.2); Basophils % (auto) 0.1 %; Eosinophils # (auto) 0.01 K/uL (0-0.5); Eosinophils % (auto) 0.1 %; Immature Granulocytes # (auto) 0.05 K/uL (0.00-0.02); Immature Granulocytes % (auto) 0.5 %; Lymphocytes # (auto) 1.78 K/uL (1.2-3.4); Lymphocytes % (auto) 16.7 %; Monocytes # (auto) 1.28 K/uL (0.11-0.59); Neutrophils # (auto) 7.55 K/uL (1.4-6.5); Neutrophils % (auto) 70.6 %
[2020-01-20 07:27] LABS: Albumin Level 2.2 gm/dl (3.4-5.0); BUN Creatinine Ratio 36.4 (10-20); Calcium 8.5 mg/dl (8.5-10.1); Creatinine Clr Calc Pharmacy 193.9 ml/min; Est GFR (African American) 126.9; Est GFR (Non-African American) 109.5; Magnesium 2.3 mg/dl (1.8-2.4); Potassium 3.5 mmol/L (3.5-5.1)
[2020-01-20 07:29] LABS: Albumin Globulin Ratio 0.5 (0.9-2); Bilirubin,Total 0.4 mg/dl (0.2-1); Globulin 4.1 gm/dl (2.5-4.0); Total Protein 6.3 gm/dl (6.4-8.2)
[2020-01-20] MEDS ORDERED: INSULIN HUMAN NPH SC SCH ×3 (07:30→09:00)
[2020-01-20] MEDS: POTASSIUM CHLORIDE CRTAB 20 MEQ TABCR PO SCH ×3 (09:50→21:03)
[2020-01-20] MEDS: dexAMETHasone 6 MG in SYRINGE 0 ML IV SCH (09:50)
[2020-01-20] MEDS: METOPROLOL TARTRATE 25 MG TAB PO SCH ×2 (09:51→21:02)
[2020-01-20] MEDS: LOSARTAN POTASSIUM 50 MG TAB PO SCH (09:51)
[2020-01-20] MEDS: PANTOprazole 40 MG TAB PO SCH (09:51)
[2020-01-20] MEDS: ASCORBIC ACID 500 MG TAB PO SCH ×2 (09:52→21:03)
[2020-01-20] MEDS: ZINC SULFATE 220 MG CAPSULE PO SCH (09:52)
[2020-01-20] MEDS: INSULIN ASPART 100 UNITS/ML 3 ML PEN SC SCH ×4 (09:54→21:21)
[2020-01-20] MEDS: AZITHROMYCIN 500 MG in DEXTROSE 5% 250 ML IV SCH (10:04)
--- NOTE | 2020-01-20 10:25 | Hospitalist Progress Note ---
Date of Service January 20, 2020 Assessment & Plan (1) Pneumonia due to 2019 novel coronavirus: Pneumonia due to COVID-19 virus with hypoxia- Decadron 6 mg IV daily LD 01/25, can change to PO if he is ready for discharge tomorrow Convalescent plasma administered, tolerated well Remdesivir IV per protocol LD 01/20 Azithromycin 500 mg IV daily LD 01/22(5 day course) Ventolin HFA 2 puffs 4 times daily, and every 2 hours as needed Nasal cannula titration to keep pulse ox around 93-94%, today he is down to 1L no distress at all, would consider discharging tomorrow as long as he remains stable can get a two step tomorrow morning to set him up for home oxygen (2) Hypoxia: 1L NC, no distress, try to wean as tolerated, saturation goal is 90% plan for two step tomorrow to arrange for home oxygen if needed (3) Diabetes: Glucose 156 upon admission, with decreased oral intake during illness. Hold Trulicity, Jardiance, glimepiride and metformin. hyperglycemia yesterday, sugars 340-360 in afternoon and evening will use NPH 50 units this morning, tightened Novolog coverage he said he would be comfortable giving himself the NPH at home for several days, last day would be 01/25 monitor closely to make sure sugars are stable today on above regimen (4) Morbid obesity: Noted as risk factor BMI is 58.2 (5) Hypertension: Continue metoprolol tartrate 25 mg p.o. twice daily, losartan 100 mg p.o. every morning and aspirin 325 mg daily. Hold HCTZ due to hypokalemia. continue to replete potassium, 3.5 today (6) DVT (deep venous thrombosis): Place on Lovenox prophylaxis for COVID-19. 0.5 mg/kg dosing (7) GERD (gastroesophageal reflux disease): Omeprazole 20 mg daily to be changed to pantoprazole 40 mg daily (8) Acute hypokalemia: K is 3.5, will continue TID replacement repeat tomorrow (9) Obstructive sleep apnea on CPAP: CPAP at bedtime as needed he cannot tolerate our masks, use nasal canula as alternative (10) Dyslipidemia: Not on treatment at this time Admission and Anticipated Discharge Date Admission Date: January 17, 2020 Subjective patient says he is doing really well, breathing comfortably on 1L today has some dyspnea with exertion and whenever he has a coughing spell sugars better this morning at 160, will see how he does with the NPH this morning patient is eating really well, no fever/chills he feels like he could go home tomorrow, I told him we could set him up for home oxygen if needed tomorrow really want to watch his sugars today with the NPH called his for update today, answered her questions Review of Systems Review of Systems: All systems reviewed & are unremarkable except as noted in Subjective Respiratory: + cough and + dyspnea on exertion Physical Exam Constitutional: well developed, well nourished and + morbidly obese; no acute distress Neck: trachea midline and + thick neck; no anterior neck swelling Respiratory: normal respiratory effort; no respiratory distress Auscultation: no crackles and no rhonchi Cardiovascular: RRR, no murmur, no edema Gastrointestinal (Abdomen): normal bowel sounds, soft, nontender, no hepatosplenomegaly Musculoskeletal: no cyanosis or clubbing, extremities motor strength 5/5 Skin: no rashes, warm and dry Neurologic: patellar DTR's 2+ bilat, sensation intact and PERRL, EOMI, accommodation nl, no face palsy, no dysarthria Psychiatric: A+Ox3, euthymic affect Lymphatic: no cervical or axillary lymphadenopathy Results & Data Results & Data ([facility]) Vital Signs (Past 12 Hours) Vital Signs Temp Pulse Pulse Resp BP Pulse Ox 01/20/20 09:49 95 01/20/20 07:14 36.5 C 64 18 128/80 91 01/20/20 05:28 36.8 C 79 18 122/74 96 01/19/20 23:30 59 L 01/19/20 23:00 36.8 C 65 20 128/71 95 Laboratory Results Laboratory Results - last 24 hr 01/19/20 01/19/20 01/19/20 11:23 11:24 16:50 WBC RBC Hgb Hct MCV MCH MCHC RDW Std Deviation RDW Coeff of Real Plt Count MPV Immature Gran % (Auto) Neut % (Auto) Lymph % (Auto) [place] % (Auto) Eos % (Auto) Baso % (Auto) Neut # (Auto) Lymph # (Auto) [place] # (Auto) Eos # (Auto) Baso # (Auto) Immature Gran # (Auto) Sodium Potassium Chloride Carbon Dioxide Anion Gap BUN Creatinine Est Cr Clr Drug Dosing Est GFR ( Amer) Est GFR (Non-Af Amer) BUN/Creatinine Ratio Glucose POC Glucose 338 H* 362 H* 365 H* Calcium Magnesium Total Bilirubin AST ALT Alkaline Phosphatase Total Protein Albumin Globulin Albumin/Globulin Ratio 01/19/20 01/19/20 01/19/20 16:52 20:12 20:14 WBC RBC Hgb Hct MCV MCH MCHC RDW Std Deviation RDW Coeff of Real Plt Count MPV Immature Gran % (Auto) Neut % (Auto) Lymph % (Auto) [place] % (Auto) Eos % (Auto) Baso % (Auto) Neut # (Auto) Lymph # (Auto) [place] # (Auto) Eos # (Auto) Baso # (Auto) Immature Gran # (Auto) Sodium Potassium Chloride Carbon Dioxide Anion Gap BUN Creatinine Est Cr Clr Drug Dosing Est GFR ( Amer) Est GFR (Non-Af Amer) BUN/Creatinine Ratio Glucose POC Glucose 345 H* 314 H* 334 H* Calcium Magnesium Total Bilirubin AST ALT Alkaline Phosphatase Total Protein Albumin Globulin Albumin/Globulin Ratio 01/19/20 01/20/20 01/20/20 20:16 01:56 06:09 WBC 10.68 RBC 4.57 L Hgb 13.3 L Hct 40.4 L MCV 88.4 MCH 29.1 MCHC 32.9 RDW Std Deviation 44.0 RDW Coeff of Real 13.6 Plt Count 327 MPV 11.0 H Immature Gran % (Auto) 0.5 Neut % (Auto) 70.6 Lymph % (Auto) 16.7 [place] % (Auto) 12.0 Eos % (Auto) 0.1 Baso % (Auto) 0.1 Neut # (Auto) 7.55 H Lymph # (Auto) 1.78 [place] # (Auto) 1.28 H Eos # (Auto) 0.01 Baso # (Auto) 0.01 Immature Gran # (Auto) 0.05 H Sodium Potassium Chloride Carbon Dioxide Anion Gap BUN Creatinine Est Cr Clr Drug Dosing Est GFR ( Amer) Est GFR (Non-Af Amer) BUN/Creatinine Ratio Glucose POC Glucose 330 H* 197 H Calcium Magnesium Total Bilirubin AST ALT Alkaline Phosphatase Total Protein Albumin Globulin Albumin/Globulin Ratio 01/20/20 01/20/20 06:09 08:05 WBC RBC Hgb Hct MCV MCH MCHC RDW Std Deviation RDW Coeff of Real Plt Count MPV Immature Gran % (Auto) Neut % (Auto) Lymph % (Auto) [place] % (Auto) Eos % (Auto) Baso % (Auto) Neut # (Auto) Lymph # (Auto) [place] # (Auto) Eos # (Auto) Baso # (Auto) Immature Gran # (Auto) Sodium 140 Potassium 3.5 Chloride 105 Carbon Dioxide 28 Anion Gap 7.0 BUN 24 H Creatinine 0.65 Est Cr Clr Drug Dosing 193.9 Est GFR ( Amer) 126.9 Est GFR (Non-Af Amer) 109.5 BUN/Creatinine Ratio 36.4 H Glucose 151 H POC Glucose 140 H Calcium 8.5 Magnesium 2.3 Total Bilirubin 0.4 AST 34 ALT 41 Alkaline Phosphatase 61 Total Protein 6.3 L Albumin 2.2 L Globulin 4.1 H Albumin/Globulin Ratio 0.5 L Medications Administered Current Inpatient Medications Acetaminophen (Acetaminophen 325 Mg Tab) 650 mg PO Q4H PRN PRN Reason: Pain or Fever Stop: 02/17/20 00:23 Al Hydrox/Mg Hydrox/Simethicone (Aluminum/Magnesium Susp 30 Ml Udc) 15 ml PO Q4H PRN PRN Reason: Dyspepsia Stop: 02/17/20 00:23 Ascorbic Acid (Ascorbic Acid 500 Mg Tab) 1,000 mg PO BID [facility] Stop: 02/17/20 00:23 Last Admin: 01/20/20 09:52 Dose: 1,000 mg Documented by: Aspirin (Aspirin 325 Mg Ectab) 325 mg PO PM [facility] Stop: 02/17/20 20:59 Last Admin: 01/19/20 20:53 Dose: 325 mg Documented by: Dextrose (Dextrose 50% 50 Ml Syringe) 25 - 50 ml IV UD PRN; Protocol PRN Reason: Hypoglycemia Protocol Stop: 02/17/20 00:23 Enoxaparin Sodium (Enoxaparin 80 Mg/0.8 Ml Syr) 80 mg SQ Q24H [facility] Stop: 02/17/20 02:59 Last Admin: 01/19/20 19:35 Dose: 80 mg Documented by: Glucagon (Glucagon For Inj 1 Mg Vial) 1 mg SQ UD PRN; Protocol PRN Reason: Hypoglycemia Protocol Stop: 02/17/20 00:23 Glucose (Glucose 10 Tabs/Tube) 4 - 8 tabs PO UD PRN; Protocol PRN Reason: Hypoglycemia Protocol Stop: 02/17/20 00:23 Glucose (Glucose 40% Gel 15 Gm Tube) 15 - 30 gm PO UD PRN; Protocol PRN Reason: Hypoglycemia Protocol Stop: 02/17/20 00:23 Dexamethasone 6 mg/ Syringe 1.5 mls @ 1 mls/min IV QAM [facility] Stop: 02/17/20 08:59 Last Admin: 01/20/20 09:50 Dose: 1 mls/min Documented by: Azithromycin 500 mg/ Dextrose 255 mls @ 125 mls/hr IV DAILY [facility] Stop: 01/25/20 08:59 Last Admin: 01/20/20 10:04 Dose: 125 mls/hr Documented by: Remdesivir 100 mg/ Sodium (Chloride) 250 mls @ 250 mls/hr IV Q24H [facility]; Protocol Stop: 01/21/20 20:59 Last Infusion: 01/19/20 21:53 Dose: Infused Documented by: Insulin Aspart (Insulin Aspart 100 Units/Ml 3 Ml Pen) 0 units SC ACHS [facility] Stop: 02/17/20 01:59 Last Admin: 01/20/20 09:54 Dose: 10 units Documented by: Insulin Glargine (Insulin Glargine Solostar 100 Units/Ml 3 Ml Pen) 40 units SC [facility]; Protocol Stop: 02/19/20 20:59 Insulin Human NPH (Insulin Human Nph) 50 units SC DAILY@0900 [facility] Stop: 02/19/20 08:59 Last Admin: 01/20/20 09:56 Dose: 50 units Documented by: Losartan Potassium (Losartan Potassium 50 Mg Tab) 100 mg PO QAM [facility] Stop: 02/17/20 08:59 Last Admin: 01/20/20 09:51 Dose: 100 mg Documented by: Magnesium Hydroxide (Magnesium Hydroxide Susp 30 Ml Udc) 30 ml PO Q12H PRN PRN Reason: Constipation Stop: 02/17/20 00:23 Metoprolol Tartrate (Metoprolol Tartrate 25 Mg Tab) 25 mg PO BID [facility] Stop: 02/17/20 00:23 Last Admin: 01/20/20 09:51 Dose: 25 mg Documented by: Miscellaneous (Carbohydrates For Hypoglycemia ) 15 - 30 gm PO UD PRN PRN Reason: Hypoglycemia Protocol Stop: 02/17/20 00:23 Miscellaneous Information (Pharmacy Glycemic Mgmt Consult) 1 ea N/A UD PRN PRN Reason: Consult Stop: 02/18/20 20:54 Ondansetron HCl (Ondansetron Inj 2 Mg/Ml 2 Ml Vial) 4 mg IV Q6H PRN PRN Reason: Nausea Stop: 02/17/20 00:23 Pantoprazole Sodium (Pantoprazole 40 Mg Tab) 40 mg PO QAM [facility] Stop: 02/17/20 08:59 Last Admin: 01/20/20 09:51 Dose: 40 mg Documented by: Potassium Chloride (Potassium Chloride Crtab 20 Meq Tabcr) 20 meq PO TID [facility] Stop: 01/20/20 21:01 Last Admin: 01/20/20 09:50 Dose: 20 meq Documented by: Sodium Chloride (Sodium Chloride 0.9% 10ml Flush) 30 ml IV Q24H [facility] Stop: 01/22/20 03:01 Last Admin: 01/19/20 21:53 Dose: 30 ml Documented by: Zinc Sulfate (Zinc Sulfate 220 Mg Capsule) 220 mg PO QAM [facility] Stop: 02/17/20 08:59 Last Admin: 01/20/20 09:52 Dose: 220 mg Documented by: PG Care Time/CCT Total # of Minutes Spent Total Time Spent with Patient: Total time spent is greater than 50% in coordination of care (as documented) at patient's floor/unit and/or counseling p atient: Coding Level of Care Code 29303 Subseq Hosp Care Lvl 3 Diagnoses Pneumonia due to 2019 novel coronavirus U07.1; J12.89 Hypoxia R09.02 Diabetes E11.9 Diabetes mellitus complication status: without complication Diabetes mellitus long-term insulin use: without intermodal customer service use Diabetes mellitus type: type 2 Morbid obesity E66.01 Hypertension I10 DVT (deep venous thrombosis) I82.409 GERD (gastroesophageal reflux disease) K21.9 Acute hypokalemia E87.6 Obstructive sleep apnea on CPAP G47.33; Z99.89 Dyslipidemia E78.5 (1) Diabetes Diabetes mellitus complication status: without complication Diabetes mellitus intermodal customer service insulin use: without intermodal customer service use Diabetes mellitus type: type 2 Qualified Code(s): E11.9 - Type 2 diabetes mellitus without complications
--- NOTE | 2020-01-20 11:06 | Pharmacy Report ---
Glycemic Control Consultation - Date of Service January 20, 2020 - Scope Scope: Glycemic Pharmacist consulted for glycemic control and to write orders per [facility] inpatient glycemic control protocol. - Objective Weight: 167.7 kg Accuchecks BSG (last 24hrs): 01/19/20 01/19/20 01/19/20 11:23 11:24 16:50 Glucose POC Glucose 338 H* 362 H* 365 H* 01/19/20 01/19/20 01/19/20 16:52 20:12 20:14 Glucose POC Glucose 345 H* 314 H* 334 H* 01/19/20 01/20/20 01/20/20 20:16 01:56 06:09 Glucose 151 H POC Glucose 330 H* 197 H 01/20/20 08:05 Glucose POC Glucose 140 H Laboratory Data (last 24hrs): 01/20/20 06:09 Potassium 3.5 Carbon Dioxide 28 Anion Gap 7.0 Creatinine 0.65 Est Cr Clr Drug Dosing 193.9 HbA1c: Hemoglobin A1c 7.6 % (4.5-5.6) H 01/18/20 05:54 - Recent Pertinent Medications Outpatient Anti-diabetic Regimen: * Trulicity 0.5 mg weekly * Amaryl 4 mg BID * metformin 1000 mg BID * Jardiance 10 mg daily * A1c = 7.6 % 01/18/20 The patient is currently receiving: * Basal insulin: Lantus 40 units x 1 * Correctional Insulin: Novolog Correction per scale ACHS Goal Range: Low 110 mg/dL - High 140 mg/dL Correction Factor: 15 mg/dL/unit * Prandial insulin: Per carb ratio of 1 unit per 5 grams CHO consumed * Oral Agents: N/A Risk Factors for Insulin Resistance: * Steroids: dexamethasone 6 mg IV daily * Infection: COVID-19 pneumonia on Remdesivir + Zithromax * Diet: T2DM - Assessment & Plan Assessment & Plan: ASSESSMENT: * PLAN FOR INPATIENT GLYCEMIC CONTROL: * Starting IV insulin infusion per [] (moderate/severe) stress protocol * Goal Range [] - [] mg/dl * In the critical care setting, continuous IV insulin infusion has been shown to be the best method for achieving glycemic targets. * Holding outpatient oral diabetes medications * Basal insulin * Lantus [] units SQ BID * Bolus insulin * NovoLog per scale ACHS or Q6hrs while NPO * Goal Range: Low [] mg/dL - High [] mg/dL * Correction Factor: [] mg/dL/unit * Nutritional / Prandial insulin per carb ratio of 1 unit per [] grams CHO c onsumed OR PLAN FOR INPATIENT GLYCEMIC CONTROL: * Continuing / Increasing / decreasing Lantus/NPH to [] units SQ BID * Continuing / changing correction factor to [] mg/dl/unit * Continuing / changing carb ratio to 1 unit per [] grams CHO consumed * Continuing / changing goal range to Low [] mg/dL - High [] mg/dL * Please note that the plan above was derived based on current level of insulin resistance and hospital stress. These recommendations are appropriate for inpatient admission only. Plan of care upon discharge will need to be reassessed to avoid potential outpatient hypo/hyperglycemia. Thank you.
[2020-01-20] MEDS: INSULIN GLARGINE SOLOSTAR 100 UNITS/ML 3 ML PEN SC SCH ×2 (12:33→21:17)
[2020-01-20] MEDS: REMDESIVIR 100 MG in SODIUM CHLORIDE 0.9% 230 ML IV SCH (20:59)
[2020-01-20] MEDS: ENOXAPARIN 80 MG/0.8 ML SYR SQ SCH (21:00)
[2020-01-20] MEDS ORDERED: INSULIN GLARGINE SOLOSTAR 100 UNITS/ML 3 ML PEN SC SCH ×2 (21:00)
[2020-01-20] MEDS: ASPIRIN 325 MG ECTAB PO SCH (21:01)
[2020-01-20] MEDS: SODIUM CHLORIDE 0.9% 10ML FLUSH IV SCH (22:29)
[2020-01-20] MEDS ORDERED: COUGH DROP (SUGAR FREE) LOZ 24 LOZ/1 BOX BUCCAL ONE (23:52)
[2020-01-21 07:33] LABS: BUN Creatinine Ratio 26.4 (10-20); Calcium 8.2 mg/dl (8.5-10.1); Creatinine Clr Calc Pharmacy 204.5 ml/min; Est GFR (African American) 129.4; Est GFR (Non-African American) 111.7; Potassium 3.5 mmol/L (3.5-5.1)
[2020-01-21] MEDS ORDERED: INSULIN HUMAN NPH SC SCH (09:00)
[2020-01-21] MEDS ORDERED: INSULIN GLARGINE SOLOSTAR 100 UNITS/ML 3 ML PEN SC SCH (09:00)
[2020-01-21] MEDS: PANTOprazole 40 MG TAB PO SCH (09:27)
[2020-01-21] MEDS: AZITHROMYCIN 500 MG in DEXTROSE 5% 250 ML IV SCH (09:28)
[2020-01-21] MEDS: ZINC SULFATE 220 MG CAPSULE PO SCH (09:28)
[2020-01-21] MEDS: ASCORBIC ACID 500 MG TAB PO SCH (09:28)
[2020-01-21] MEDS: METOPROLOL TARTRATE 25 MG TAB PO SCH (09:29)
[2020-01-21] MEDS: LOSARTAN POTASSIUM 50 MG TAB PO SCH (09:29)
[2020-01-21] MEDS: dexAMETHasone 6 MG in SYRINGE 0 ML IV SCH (09:29)
[2020-01-21] MEDS: INSULIN ASPART 100 UNITS/ML 3 ML PEN SC SCH ×2 (09:44→12:26)
--- NOTE | 2020-01-21 11:58 | Pharmacy Report ---
Glycemic Control Progress Note - Date of Service January 21, 2020 - Scope Glycemic Pharmacist consulted for glycemic control to write orders per [facility] inpatient glycemic control protocol. - Objective Accuchecks BSG(last 24 hours):: 01/20/20 01/20/20 01/20/20 11:48 16:37 20:50 Glucose POC Glucose 269 H 209 H 219 H 01/21/20 01/21/20 01/21/20 06:02 07:38 11:19 Glucose 69 L POC Glucose 87 160 H HbA1c:: Hemoglobin A1c 7.6 % (4.5-5.6) H 01/18/20 05:54 - Recent Pertinent Medications The patient is currently receiving: * Basal insulin: Lantus 20 units every 12 hours * Correctional Insulin: Novolog Correction per scale ACHS Goal Range: Low 110 mg/dL - High 140 mg/dL Correction Factor: 15 mg/dL/unit * Prandial insulin: Per carb ratio of 1 unit per 4 grams CHO consumed - Outpatient Anti-Diabetic Meds Trulicity 0.5 mg SQ weekly Amaryl 4 mg BID Metformin 1000 mg BID Jardiance 10 mg daily - Assessment & Plan ASSESSMENT: * See progress note from 01/20/20 for more background info, in short: * Pt receiving SQ basal bolus insulin regimen for hyperglycemia secondary to baseline DM (outpatient regimen on hold) and receiving steroids (dexamethasone 6 mg IV daily). * Patient is currently receiving an average of 150 units of insulin per day * 90 units of basal insulin * 60 units of prandial/correctional insulin * BSGs ranging 140 - 269 mg/dl over the past 24hrs * Changes needed to insulin regimen: * AM Fasting BSG = 87 mg/dl. This is below goal range for patient based on inpatient targets and co-morbidities. Therefore Basal insulin will be decreased to 15 units BID. * Post-prandial BSGs are reasonably controlled. Increased NPH by 10 units. * Total daily dose = ~175 units. Increased insulin appropriately. * Additional notes / comments: hold oral medications PLAN FOR INPATIENT GLYCEMIC CONTROL: * Decreasing Lantus to 15 units SQ BID plus INCREASE NPH to 60 units daily * Continuing correction factor of 15 mg/dl/unit * Continuing carb ratio of 1 unit per 4 grams CHO consumed * Continuing goal range of Low 110 mg/dL - High 140 mg/dL RECOMMENDATIONS FOR DISCHARGE: * Patient can resume home regimen when he returns home. * Recommend NPH 15 units SQ daily with dexamethasone 6 mg orally. Thank you.
--- NOTE | 2020-01-22 11:36 | Discharge Summary ---
Date of Service January 21, 2020 Admission HPI Per Admitting Provider The patient is a 54-year-old male with a past medical history including diabetes mellitus, morbid obesity, hypertension, dyslipidemia, DVT, GERD and asthma. In addition to the symptoms above, he is also had tremendous thirst, and an upset stomach. He does not regularly check his blood sugar so is unaware of what his sugars have been. He reports that he has begun to use his nighttime CPAP during the daytime as well to try to help with his breathing. He had a telehealth appointment by his PCP yesterday, and was prescribed antibiotics. He was advised to have a COVID-19 test by his PCP during the telehealth visit but declined. In the emergency department patient had the following significant laboratories: WBC 11.45, potassium 2.9, albumin 2.6, glucose 156, AST 54, D-dimer 850. Imaging studies included chest x-ray and CT of chest, both of which suggested viral pneumonia. He underwent an initial SARSCoV-2 RNA, NAAT test that was negative. However it was agreed by Dr. Garcia and myself that the patient most likely had COVID-19, and the patient therefore underwent a COVID-19 PCR test which was positive. His lowest pulse ox recorded was 90% on room air, and improved to 93-94% on 4 L nasal cannula oxygen. Principal Diagnosis COVID 19 pneumonia causing acute hypoxic respiratory failure Discharge Exam Constitutional well developed, well nourished and + morbidly obese; no acute distress Neck trachea midline and + thick neck; no anterior neck swelling Respiratory normal respiratory effort; no respiratory distress Auscultation: no crackles and no rhonchi Cardiovascular RRR, no murmur, no edema Gastrointestinal (Abdomen) normal bowel sounds, soft, nontender, no hepatosplenomegaly Musculoskeletal no cyanosis or clubbing, extremities motor strength 5/5 Skin no rashes, warm and dry Neurologic patellar DTR's 2+ bilat, sensation intact and PERRL, EOMI, accommodation nl, no face palsy, no dysarthria Psychiatric A+Ox3, euthymic affect Lymphatic no cervical or axillary lymphadenopathy Discharge Data Allergies Allergy/AdvReac Type Severity Reaction Status Date / Time No Known Allergies Allergy Unverified 01/17/20 19:26 Consultations 01/17/20 19:58 ED Decision to Admit Stat 12/06/20 00:24 Consult Case Management - Discharge Planning Routine Ordered Studies 01/17/20 18:52 CT angio chest PE protocol Stat Hospital Course (1) Pneumonia due to 2019 novel coronavirus: Pneumonia due to COVID-19 virus with hypoxia- Decadron 6 mg IV daily, completed 5 days inpatient, change to 6mg PO daily for 5 more days at home Convalescent plasma administered, tolerated well Remdesivir IV per protocol, completed 5 days on 01/20 Azithromycin 500 mg IV daily, will change to PO for three more days titrated down to room air at rest, 2 step showed that the patient requires 2L on exertion, arranged for home oxygen patient eating and drinking well, no fever remain in isolation 10 days from onset symptoms monitor for any worsening symptoms but should continue to improve (2) Hypoxia: titrated down to room air for 24 hours, no distress 2 step shows he needs 2L on exertion only, likely will be okay without oxygen after a week follow up with PCP (3) Diabetes: Glucose 156 upon admission, with decreased oral intake during illness. Held Trulicity, Jardiance, glimepiride and metformin while here hyperglycemia after initial Dexamethasone, sugars 340-360 in afternoon and evening used NPH 50 units qAM he said he would be comfortable giving himself the NPH at home for five days, last day would be 01/25 follow diabetic diet at home, resume home regimen (4) Morbid obesity: Noted as risk factor BMI is 58.2 (5) Hypertension: Continue metoprolol tartrate 25 mg p.o. twice daily, losartan 100 mg p.o. every morning and aspirin 325 mg daily. resume HCTZ on discharge (6) DVT (deep venous thrombosis): Place on Lovenox prophylaxis for COVID-19. 0.5 mg/kg dosing (7) GERD (gastroesophageal reflux disease): Omeprazole 20 mg daily to be changed to pantoprazole 40 mg daily (8) Acute hypokalemia: resolved after PO replacement (9) Obstructive sleep apnea on CPAP: CPAP at bedtime as needed he cannot tolerate our masks, use nasal canula as alternative (10) Dyslipidemia: Not on treatment at this time Total Time Total Time Spent Total Time Spent (In Minutes): 36 minutes Total Time Includes: Examination of the Patient, Discharge Planning, Medication Reconciliation and Other (discussed with his over the phone) Discharge Plan Discharge Items Patient Disposition: Home - Self-Care Reason For Visit: PNEUMONIA DUE TO COVID-19 WITH HYPOXIA Discharge Diagnosis: COVID 19 pneumonia Condition on Discharge: Good Activity: Resume your previous activity Non-emergency contact: Primary Care Provider Call non-emergency contact if: you have any medication questions and your symptoms worsen Follow-up/Referrals: Brissa Ly PA-C [Primary Care Provider] - 01/26/20 10:20 am (YOUR APPOINTMENT WILL BE A TELE-HEALTH APPOINTMENT) Diet: Carb Consistent or DM2 Addtl Attending Provider Instructions: Medications: - DEXAMETHASONE: 6mg daily for 5 more days then stop - NPH INSULIN: 60 units in the morning at the same time as dexamethasone, this will limit hyperglycemia - ZITHROMAX: 500mg daily for three more days OXYGEN: you do not need oxygen at rest, but you need 2L on exertion likely that you won't need any oxygen after a week, you can check your sat urations with a finger pulse ox, purchase at [facility] COVID 19: responding well to treatment with steroids finish course of dexamethasone you should remain in isolation until 10 days from your positive test Pending Studies at Discharge: No Stand-Alone Forms: My [facility] [employer], Smoking Cessation Medications and DC Order Prescriptions: Continued ascorbic acid (vitamin C) 1,000 mg Tablet 1 g PO BID RF: 0 omeprazole 20 mg Capsule,Delayed Release(Dr/Ec) 20 mg PO QAM RF: 0 albuterol sulfate 90 mcg/actuation Hfa Aerosol Inhaler 2 inh INHALATION QID PRN (Reason: Shortness Of Breath Or Wheezing) RF: 0 losartan 100 mg tablet 100 mg PO QAM RF: 0 glimepiride 4 mg tablet 4 mg PO BID RF: 0 aspirin 325 mg Tablet,Delayed Release (Dr/Ec) 325 mg PO PM RF: 0 metformin 1,000 mg Tablet 1,000 mg PO BID RF: 0 hydrochlorothiazide 25 mg Tablet 25 mg PO QAM RF: 0 metoprolol tartrate 25 mg Tablet 25 mg PO BID RF: 0 acetaminophen [Tylenol Extra Strength] 500 mg Tablet 1,000 mg PO Q6H PRN (Reason: Pain) RF: 0 zinc 50 mg Tablet 50 mg PO QAM RF: 0 Jardiance 10 mg tablet 10 mg PO QAM RF: 0 Trulicity 1.5 mg/0.5 mL pen injector 0.5 mg SUBCUT WK RF: 0 Discharge Orders: Discharge Order (Routine); Ordered 01/21/20 Ordered By: Randal Art/Other Patient Handouts: Managing Type 2 Diabetes Admission Data Admit Date/Time: 01/17/20 22:36 Attending Provider: Randal Sin Admit Provider: Jean Carlos Daley Primary Care Provider: Brissa Ly Providers: Jean Carlos Daley Other Interventions: Discharge Summary Assessment (RN) Last Done: 01/21/20 07:00 Coding Level of Care Code D/C Day Management >30 mins Diagnoses Pneumonia due to 2019 novel coronavirus U07.1; J12.89 Hypoxia R09.02 Diabetes E11.9 Diabetes mellitus complication status: without complication Diabetes mellitus fpc insulin use: without cop examiner use Diabetes mellitus type: type 2 Morbid obesity E66.01 Hypertension I10 DVT (deep venous thrombosis) I82.409 GERD (gastroesophageal reflux disease) K21.9 Acute hypokalemia E87.6 Obstructive sleep apnea on CPAP G47.33; Z99.89 Dyslipidemia E78.5
== END 2020-01-21 15:13 | disposition home or self-care (01) | DRG 177 ==
LOC: ED 16:04 → SUATTDRO 22:36 → 2S 22:36